=== PATIENT | male | born 1950 | race Caucasian/White ===

== ENCOUNTER 2016-10-05 09:28 | Emergency (ER) | payer BC ==
[2016-10-05 09:45] VITALS: BP 187/99
--- NOTE | 2016-10-05 10:00 | UC ---
I, Lopez,Tanna, scribed for Sharath Marshall MD on 10/05/16 at 0955 . Respiratory Complaint HPI - HPI Summary HPI Summary: This 66 y/o male presents to [facility] with chief complaint of productive cough since a week ago. No fever or chills. Pt has been controlling his symptoms with inhaler q2h and Mucinex. Mucinex alleviates congestion, but still reports head "fullness" that makes sleeping difficult. Pt was evaluated by Dr. Mason yesterday. PMHx does include asthma. FHx is negative for HTN. NKDA. Pt was instructed to use his inhaler NEEDED. Plan of care involving prednisone is discussed with pt, and he is agreeable. - History of Current Complaint Stated Complaint: HEAD/CHEST CONGESTION Hx Obtained From: Patient, Medical Records Onset/Duration: Gradual Onset Timing: Constant Severity Initially: Mild Severity Currently: Mild Character: Cough: Productive Associated Signs And Symptoms: Positive: URI, Nasal Congestion. Negative: Fever , Chills - Allergies/Home Medications Allergies/Adverse Reactions: Allergies Allergy/AdvReac Type Severity Reaction Status Date / Time No Known Allergies Allergy Verified 10/05/16 09:37 Home Medications: Home Medications Upbtckxkrudrw-Hzuhikkzzxfsn-Su [Mucinex Fast-Max Cold & S] 1 tab PO 10/05/16 [ History] PMH/Surg Hx/FS Hx/Imm Hx Respiratory History Of: Reports: Asthma - Surgical History Surgical History: None - Family History Known Family History: Negative: Hypertension - Social History Alcohol Use: Occasionally Substance Use Type: None Smoking Status (MU): Never Smoked Tobacco - Immunization History Most Recent Influenza Vaccination: none Most Recent Tetanus Shot: DPT January 2016 Review of Systems Constitutional: Negative Skin: Negative Eyes: Negative ENT: Nasal Discharge Respiratory: Cough - productive Gastrointestinal: Negative Genitourinary: Negative Motor: Negative Neurovascular: Negative Musculoskeletal: Negative Neurological: Headache - head "fullness" Psychological: Negative All Other Systems Reviewed And Are Negative: Yes Physical Exam Triage Information Reviewed: Yes Appearance: Well-Appearing, No Pain Distress, Well-Nourished Vital Signs: Initial Vital Signs Temp 97.4 F 10/05/16 09:41 Pulse 68 10/05/16 09:41 Resp 16 10/05/16 09:41 BP 187/99 10/05/16 09:41 Pulse Ox 95 10/05/16 09:41 Vital Signs Reviewed: Yes Eyes: Positive: Conjunctiva Clear ENT: Positive: Normal ENT inspection, Hearing grossly normal, Pharynx normal, TMs normal. Negative: Nasal congestion, Nasal drainage Neck: Positive: Supple, Nontender, No Lymphadenopathy Respiratory: Positive: Chest non-tender, No respiratory distress, No accessory muscle use, Decreased breath sounds Cardiovascular: Positive: RRR, No Murmur, Pulses Normal Skin Exam: Normal UC Diagnostic Evaluation - Laboratory O2 Sat by Pulse Oximetry: 95 Respiratory Course/Dx - Differential Dx/Diagnosis Provider Diagnoses: BRONCHITIS Discharge - Discharge Plan Condition: Stable Disposition: HOME Prescriptions: Azithromycin TAB* [Zithromax TAB (Z-MARGI) 250 mg #6 tabs] 2 tab PO .TODAY, THEN 1 DAILY #1 margi predniSONE TAB* [Deltasone TAB*] 40 mg PO DAILY #10 tab Patient Education Materials: Acute Bronchitis (ED) Referrals: Chastity Arriola MD [Primary Care Provider] - 7 Days The documentation as recorded by the Lopez rubio Soohyun accurately reflects the service I personally performed and the decisions made by Joanna porras Hossein, MD.
== END 2016-10-05 10:07 | disposition home or self-care (01) ==
LOC: UCEAST 09:28
DX: J40 Bronchitis, not specified as acute or chronic (principal); Z87.09 Personal history of other diseases of the respiratory system
CPT/HCPCS: 99212; G0463

== ENCOUNTER 2017-03-24 09:27 | Emergency (ER) | payer BC ==
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
[2017-03-24 11:12] VITALS: BP 170/90
== END 2017-03-24 11:14 | disposition home or self-care (01) ==
LOC: UCEAST 09:27
DX: J30.9 Allergic rhinitis, unspecified (principal); R05 Cough; H61.23 Impacted cerumen, bilateral
CPT/HCPCS: 99213; G0463

== ENCOUNTER 2017-04-03 10:27 | Emergency (ER) | payer BC ==
[2017-04-03] MEDS ORDERED: Albuterol 2.5 MG/3 ML NEB.SOL* (0.083%) INH ONE (12:31)
[2017-04-03] MEDS ORDERED: Ipratropium 0.5MG/2.5ML NEB* 0.5 MG/2.5 ML NEB.SOLN INH ONE (12:31)
[2017-04-03] MEDS ORDERED: predniSONE TAB* 20 MG PO ONE (12:31)
--- NOTE | 2017-04-03 12:34 | UC ---
Respiratory Complaint HPI - HPI Summary HPI Summary: 66 yo male with progressively worsening cough/wheezing x 3 days cough now productive of green phlegm YAMINI x weeks - History of Current Complaint Chief Complaint: UCRespiratory Stated Complaint: CONGESTION Time Seen by Provider: 04/03/17 12:22 Hx Obtained From: Patient Onset/Duration: Gradual Onset, Lasting Days Timing: Constant Severity Initially: Moderate Severity Currently: Moderate Pain Intensity: 2 Pain Scale Used: 0-10 Numeric Character: Cough: Productive Aggravating Factors: Allergens, Exertion Alleviating Factors: Bronchodilator Associated Signs And Symptoms: Positive: Wheezing Related History: Similar Episode/Dx as: - bronchitis - Allergies/Home Medications Allergies/Adverse Reactions: Allergies Allergy/AdvReac Type Severity Reaction Status Date / Time No Known Allergies Allergy Verified 10/05/16 09:37 PMH/Surg Hx/FS Hx/Imm Hx Previously Healthy: Yes Respiratory History: Asthma, Bronchitis - Surgical History Surgical History: None - Family History Known Family History: Negative: Hypertension, Diabetes - Social History Alcohol Use: Occasionally Substance Use Type: None Smoking Status (MU): Never Smoked Tobacco - Immunization History Most Recent Influenza Vaccination: none Most Recent Tetanus Shot: DPT January 2016 Review of Systems Constitutional: Negative Skin: Negative Eyes: Negative ENT: Negative Respiratory: Cough Cardiovascular: Negative Gastrointestinal: Negative Genitourinary: Negative Motor: Negative Neurovascular: Negative Musculoskeletal: Negative Neurological: Negative Psychological: Negative All Other Systems Reviewed And Are Negative: Yes Physical Exam Triage Information Reviewed: Yes Appearance: Well-Appearing, No Pain Distress, Well-Nourished Vital Signs: Initial Vital Signs Temp 98.7 F 04/03/17 11:12 Pulse 77 04/03/17 11:12 Resp 20 04/03/17 11:12 BP 170/90 04/03/17 11:12 Pulse Ox 96 04/03/17 11:12 Vital Signs Reviewed: Yes Eyes: Positive: Conjunctiva Clear ENT: Positive: Hearing grossly normal. Negative: Nasal congestion, Nasal drainage, Trismus, Muffled/hoarse voice Neck: Positive: Supple, Nontender, No Lymphadenopathy Respiratory: Positive: Accessory muscle use, Wheezing Cardiovascular: Positive: RRR, No Murmur Musculoskeletal: Positive: ROM Intact, No Edema Neurological: Positive: Alert Psychological Exam: Normal Skin Exam: Normal UC Diagnostic Evaluation - Laboratory O2 Sat by Pulse Oximetry: 96 - normal not hypoxic Re-Evaluation - Re-Evaluation First Eval Re-Evaluation Time: 13:25 Change: Improved - lungs clear Respiratory Course/Dx - Course Course Of Treatment: states his BP always is high here. will follow up with PMD - Differential Dx/Diagnosis Provider Diagnoses: acute bronchitis with bronchospasm. eleveated BP Discharge - Discharge Plan Condition: Stable Disposition: HOME Prescriptions: Amoxicillin PO (*) [Amoxicillin 875 MG (*)] 875 mg PO BID #14 tab Prednisone [Deltasone] 40 mg PO DAILY #8 tab Patient Education Materials: Acute Bronchitis (ED) Referrals: Chastity Arriola MD [Primary Care Provider] - 2 Weeks Additional Instructions: BP needs rechecking use inhaler as directed recheck for worsening symptoms
[2017-04-03 13:20] VITALS: BP 209/94
== END 2017-04-03 13:45 | disposition home or self-care (01) ==
LOC: UCEAST 10:27
DX: J20.9 Acute bronchitis, unspecified (principal); R03.0 Elevated blood-pressure reading, without diagnosis of hypertension
CPT/HCPCS: 99213; G0463; J7512; J7644

== ENCOUNTER 2017-04-29 08:28 | Emergency (ER) | payer BC ==
[2017-04-29 10:02] VITALS: BP 160/80
--- NOTE | 2017-04-29 10:47 | RAD ---
HISTORY: Cough COMPARISONS: None VIEWS: 4: Frontal dual-energy and lateral views of the chest. FINDINGS: CARDIOMEDIASTINAL SILHOUETTE: The cardiomediastinal silhouette is normal. CECE: The cece are normal. PLEURA: The costophrenic angles are sharp. No pleural abnormalities are noted. LUNG PARENCHYMA: There is hyperinflation with flattening of the diaphragm and expansion of the AP diameter of the chest. ABDOMEN: The upper abdomen is clear. There is no subphrenic gas. BONES AND SOFT TISSUES: No bone or soft tissue abnormalities are noted. OTHER: None. IMPRESSION: HYPERINFLATION, CONSISTENT WITH COPD. NO ACTIVE CARDIOPULMONARY DISEASE.
--- NOTE | 2017-04-29 11:13 | UC ---
Throat Pain/Nasal Gus HPI - HPI Summary HPI Summary: DIAGNOSED WITH BRONCHITIS ON 04/03/17 RESOLVED WITH AMOXICILLIN AND PREDNISONE. FOLLOWED FOR HIGH BLOOD PRESSURE BY DR CHRISTOPHER. HAS ALLERGIES AND CONGESTION. LAST TWO WEEKS HAS HAD WORSENING COUGH, CONGESTION. HAS APPOINTMENT WITH PRIMARY CARE IN LATE APRIL. - History of Current Complaint Chief Complaint: UCRespiratory Stated Complaint: CONGESTION Time Seen by Provider: 04/29/17 10:06 Hx Obtained From: Patient Onset/Duration: Gradual Onset, Lasting Weeks, Still Present Severity: Mild Cough: Productive Associated Signs & Symptoms: Positive: Sinus Discomfort, Nasal Discharge. Negative: Wheezing, Hoarseness, Fever, Vomiting - Epiglottits Risk Factors Epiglottis Risk Factors: Negative - Allergies/Home Medications Allergies/Adverse Reactions: Allergies Allergy/AdvReac Type Severity Reaction Status Date / Time Risperidone [From Risperdal] Allergy GI Upset Verified 04/29/17 08:43 Home Medications: Home Medications Dextromethorphan-Guaifenesin [Robitussin Cough & Chest 20-400 mg/20Ml] 20 ml PO 04/29/17 [History] Fexofenadine (NF) [Milly (NF)] 1 tab PO 04/29/17 [History] PMH/Surg Hx/FS Hx/Imm Hx Previously Healthy: Yes - Surgical History Surgical History: None - Family History Known Family History: Negative: Hypertension, Diabetes - Social History Occupation: Employed Full-time Lives: With Family Alcohol Use: Occasionally Substance Use Type: None Smoking Status (MU): Never Smoked Tobacco - Immunization History Most Recent Influenza Vaccination: none Most Recent Tetanus Shot: DPT January 2016 Review of Systems Constitutional: Negative Skin: Negative Eyes: Negative ENT: Nasal Discharge, Sinus Congestion Respiratory: Cough Cardiovascular: Negative Gastrointestinal: Negative Genitourinary: Negative Motor: Negative Neurovascular: Negative Musculoskeletal: Negative Neurological: Negative Psychological: Negative All Other Systems Reviewed And Are Negative: Yes Physical Exam Triage Information Reviewed: Yes Appearance: Well-Appearing, No Pain Distress, Well-Nourished Vital Signs: Initial Vital Signs Temp 98.1 F 04/29/17 08:45 Pulse 57 04/29/17 08:45 Resp 18 04/29/17 08:45 BP 194/109 04/29/17 08:45 Pulse Ox 96 04/29/17 08:45 Vital Signs Reviewed: Yes Eye Exam: Normal ENT: Positive: Pharynx normal, Nasal congestion, TM bulging, TM dull Dental Exam: Normal Neck exam: Normal Neck: Positive: Supple, Nontender, No Lymphadenopathy Respiratory Exam: Normal Respiratory: Positive: Chest non-tender, Lungs clear, Normal breath sounds, No respiratory distress Cardiovascular Exam: Normal Cardiovascular: Positive: RRR, No Murmur, Pulses Normal Abdominal Exam: Normal Abdomen Description: Positive: Nontender Musculoskeletal Exam: Normal Musculoskeletal: Positive: Strength Intact, ROM Intact Neurological Exam: Normal Psychological Exam: Normal Skin Exam: Normal Throat Pain/Nasal Course/Dx - Differential Dx/Diagnosis Differential Diagnosis/HQI/PQRI: Pharyngitis, Sinusitis, URI Provider Diagnoses: SINUSITIS, HYPERTENSION, COPD Discharge - Discharge Plan Condition: Stable Disposition: HOME Prescriptions: Albuterol HFA INHALER* [Ventolin HFA Inhaler*] 1 - 2 puff INH Q6H PRN #1 mdi PRN Reason: Wheezing Azithromycin TAB* [Zithromax TAB (Z-MARGI) 250 mg #6 tabs] 250 mg PO DAILY #6 tab Patient Education Materials: Sinusitis (ED), Acute Bronchitis (ED), COPD ( Chronic Obstructive Pulmonary Disease) (ED), Hypertension (ED) Referrals: Chastity Arriola MD [Primary Care Provider] - Additional Instructions: ELEVATED BLOOD PRESSURE: TODAY DURING CLINICAL EVALUATION YOUR BLOOD PRESSURE WAS NOTED TO BE ELEVATED. TODAY IT WAS __194___/__109____; NORMAL BLOOD PRESSURE IS 120/80. PLEASE SET AN APPOINTMENT WITHIN THE NEXT WEEK WITH YOUR PRIMARY CARE PROVIDER (OR PROMPTLY ESTABLISH PRIMARY CARE) REGARDING PROMPT RE- EVALUATION OF THIS CONCERN. HIGH BLOOD PRESSURE IS THE MOST COMMON AND HIGHLY IMPORTANT RISK FACTOR FOR THE FOLLOWING: HEART FAILURE, HEART ATTACK ( MYOCARDIAL INFARCTION), INTRACEREBRAL HEMORRHAGE, ISCHEMIC & NONISCHEMIC STROKES , WELL CHRONIC KIDNEY DISEASE AND END STAGE RENAL DISEASE. PLEASE CONSULT AND DISCUSS MANAGEMENT OF THIS FINDING WITH YOUR PRIMARY CARE PHYSICIAN.
== END 2017-04-29 11:10 | disposition home or self-care (01) ==
LOC: UCEAST 08:28
DX: J32.9 Chronic sinusitis, unspecified (principal); I10 Essential (primary) hypertension; J44.9 Chronic obstructive pulmonary disease, unspecified; Z88.8 Allergy status to other drugs, medicaments and biological substances
CPT/HCPCS: 71020; 99212; G0463

== ENCOUNTER 2017-05-05 07:30 | Emergency (ER) | payer BC ==
[2017-05-05 07:49] VITALS: BP 170/97
--- NOTE | 2017-05-05 07:50 | UC ---
Respiratory Complaint HPI - HPI Summary HPI Summary: 66 YEAR OLD MALE PRESENTS WITH COMPLAINS OF COUGH, POST NASAL DRIP AND WHEEZING. - History of Current Complaint Chief Complaint: UCRespiratory Stated Complaint: COUGH Time Seen by Provider: 05/05/17 07:48 Hx Obtained From: Patient Onset/Duration: Lasting Days Severity Initially: Moderate Severity Currently: Moderate Pain Scale Used: 0-10 Numeric - 4 Aggravating Factors: Allergens, Exertion, Deep Breaths, Recumbent Position Alleviating Factors: Upright Position Associated Signs And Symptoms: Positive: Wheezing - Allergies/Home Medications Allergies/Adverse Reactions: Allergies Allergy/AdvReac Type Severity Reaction Status Date / Time Levocetirizine [From Xyzal] Allergy GI Upset Verified 05/05/17 07:50 PMH/Surg Hx/FS Hx/Imm Hx Previously Healthy: Yes - Surgical History Surgical History: None - Family History Known Family History: Negative: Hypertension, Diabetes - Social History Alcohol Use: Occasionally Substance Use Type: None Smoking Status (MU): Never Smoked Tobacco - Immunization History Most Recent Influenza Vaccination: none Most Recent Tetanus Shot: DPT January 2016 Review of Systems Constitutional: Negative Skin: Negative Eyes: Negative ENT: Negative Respiratory: Cough Cardiovascular: Negative Gastrointestinal: Negative Genitourinary: Negative Motor: Negative Neurovascular: Negative Musculoskeletal: Negative Neurological: Negative Psychological: Negative All Other Systems Reviewed And Are Negative: Yes Physical Exam Triage Information Reviewed: Yes Eye Exam: Normal ENT Exam: Normal Dental Exam: Normal Neck exam: Normal Neck: Positive: 1 Respiratory: Positive: Wheezing Cardiovascular Exam: Normal Abdominal Exam: Normal Musculoskeletal Exam: Normal Neurological Exam: Normal Psychological Exam: Normal Skin Exam: Normal Respiratory Course/Dx - Differential Dx/Diagnosis Provider Diagnoses: COUGH. WHEEZING. POST NASAL DRIP Discharge - Discharge Plan Condition: Stable Disposition: HOME Prescriptions: Fexofenadine (NF) [Milly 180 (NF)] 180 mg PO Q24HR #30 tab predniSONE TAB* [Deltasone TAB*] 40 mg PO DAILY #10 tab Patient Education Materials: Acute Bronchitis (ED), Allergic Rhinitis (ED), Cold Symptoms (ED), Acute Cough (ED) Referrals: Chastity Arriola MD [Primary Care Provider] -
== END 2017-05-05 08:06 | disposition home or self-care (01) ==
LOC: UCEAST 07:30
DX: R05 Cough (principal); R06.2 Wheezing; R09.82 Postnasal drip
CPT/HCPCS: 99212; G0463

== ENCOUNTER 2017-05-20 07:28 | Emergency (ER) | payer BC ==
[2017-05-20] MEDS ORDERED: Aspirin Low Dose CHEW TAB* 81 MG PO ONE (08:39)
--- NOTE | 2017-05-20 08:51 | UC ---
Respiratory Complaint HPI - HPI Summary HPI Summary: Patient presents with a past medical history of seasonal allergies, asthma, and COD. He states he has had difficulty breathing for several weeks. He states he has been treated on two occasions with Zithromax, prednisone, darlene, mucinex, and has been using his albuterol nebulizer with no significant improvement. He states last night he started to have chest pain, he motions to the middle of his chest. He states the pressure in non-radiating. He states it is constant. He states it gets worse with exertion. He states he "something is wrong". He denies recorded or tactile fever. He states overall fatigue and malaise. He reports hard time breathing, and audible wheezing all the time now. - History of Current Complaint Chief Complaint: UCRespiratory Stated Complaint: CONGESTION Time Seen by Provider: 05/20/17 08:18 Hx Obtained From: Patient Onset/Duration: Gradual Onset, Lasting Weeks Timing: Constant Severity Initially: Moderate Severity Currently: Moderate Aggravating Factors: Allergens, Exertion, Deep Breaths, Recumbent Position Alleviating Factors: Nothing Associated Signs And Symptoms: Positive: Dyspnea, Wheezing, URI, Nasal Congestion, Sinus Discomfort Related History: Seasonal Allergies - Risk Factors Pulmonary Embolism Risk Factors: Negative Cardiac Risk Factors: Negative Pseudomonas Risk Factors: Negative Tuberculosis Risk Factors: Corticosteriod Use - Allergies/Home Medications Allergies/Adverse Reactions: Allergies Allergy/AdvReac Type Severity Reaction Status Date / Time Levocetirizine [From Xyzal] Allergy GI Upset Verified 05/20/17 08:01 PMH/Surg Hx/FS Hx/Imm Hx Previously Healthy: No Respiratory History: COPD, Asthma - Surgical History Surgical History: None - Family History Known Family History: Negative: Hypertension, Diabetes - Social History Occupation: Employed Full-time Lives: Alone Alcohol Use: Occasionally Substance Use Type: None Smoking Status (MU): Never Smoked Tobacco - Immunization History Most Recent Influenza Vaccination: none Most Recent Tetanus Shot: DPT January 2016 Review of Systems Constitutional: Fatigue Respiratory: Shortness Of Breath, Cough, Other - wheezing Cardiovascular: Chest Pain Gastrointestinal: Negative Genitourinary: Negative Motor: Negative Neurovascular: Negative Musculoskeletal: Negative Neurological: Negative All Other Systems Reviewed And Are Negative: Yes Physical Exam Triage Information Reviewed: Yes Appearance: Ill-Appearing Vital Signs: Initial Vital Signs Temp 97.6 F 09/05/17 07:57 Pulse 74 05/20/17 07:57 Resp 18 05/20/17 07:57 BP 185/103 05/20/17 07:57 Pulse Ox 100 05/20/17 07:57 Vital Signs Reviewed: Yes Eye Exam: Normal ENT Exam: Normal Neck exam: Normal Respiratory: Positive: Respiratory distress, Decreased breath sounds, Accessory muscle use, Wheezing, Expiration, Inspiration Cardiovascular Exam: Normal Abdominal Exam: Normal Musculoskeletal Exam: Normal Neurological Exam: Normal Skin Exam: Normal UC Diagnostic Evaluation - Laboratory O2 Sat by Pulse Oximetry: 100 Respiratory Course/Dx - Course Course Of Treatment: Patient presents with PMH of asthma, COPD, seasonal allergies. He has been seen and treated three times with no improvment. He now has chest pain , and EKG was obtained and read as SR, and he was ambulated in the department and became tachynepic, and tachcardic with decreased O2 saturation to 93%. He received aspirin, and an albuterol treatment. IV access was obtained. Given his ongoing symtpomatology he warrents a higher level of care where he can receive a full work up of his symtpoms quickly and treated as indicated. - Differential Dx/Diagnosis Differential Diagnosis/HQI/PQRI: Exacerbation Of COPD Provider Diagnoses: COPD exacerbation. Asthma. Tachynepic. Tachcardic. Respirtory distress Discharge - Discharge Plan Condition: Stable Disposition: TRANS HIGHER LVL OF CARE FAC Referrals: Chastity Arriola MD [Primary Care Provider] -
[2017-05-20] MEDS ORDERED: Albuterol 2.5 MG/3 ML NEB.SOL* (0.083%) INH ONE (09:08)
[2017-05-20 09:18] VITALS: BP 228/98
== END 2017-05-20 09:24 | disposition short-term general hospital (02) ==
LOC: UCEAST 07:28
DX: J44.1 Chronic obstructive pulmonary disease with (acute) exacerbation (principal); R06.00 Dyspnea, unspecified; R00.0 Tachycardia, unspecified; R53.83 Other fatigue
CPT/HCPCS: 93005; 99214; A9270-GY; G0463

== ENCOUNTER 2017-05-20 09:43 | Emergency (ER) | payer BC ==
[2017-05-20] MEDS ORDERED: methylPREDNISolone 125 MG* 2 ML VIAL IV ONE (10:40)
[2017-05-20] MEDS ORDERED: Albuterol/Ipratropium NEB.SOL* Albuterol 2.5 MG/Ipratropium 0.5 MG 3 ML INH ONE ×2 (10:40→14:15)
[2017-05-20] MEDS ORDERED: NS 0.9% 1000 ML* 1,000 ML IV SCH (10:45)
[2017-05-20 10:57] LABS: Hematocrit 46 % (42-52); Hemoglobin 15.9 g/dl (14.0-18.0); Mean Corpuscular HGB Conc 35 g/dl (31-36); Mean Corpuscular Hemoglobin 33 pg (27-31); Mean Corpuscular Volume 96 fL (80-94); Mean Platelet Volume 8 um3 (7.4-10.4); Red Blood Count 4.78 10^6/ul (4.0-5.4); Red Cell Distribution Width 14 % (10.5-15); White Blood Count 5.1 10^3/ul (3.5-10.8)
[2017-05-20 11:13] LABS: ALT 17 U/L (7-52); AST 19 U/L (13-39); Albumin 3.9 g/dL (3.2-5.2); Alkaline Phosphatase 55 U/L (34-104); Anion Gap 7 mmol/L (2-11); BUN/Creatinine Ratio 20.8 (8-20); Blood Urea Nitrogen 16 mg/dL (6-24); C Reactive Protein < 1.00 mg/L (< 5.00); CO2 Carbon Dioxide 25 mmol/L (22-32); Calcium 8.9 mg/dL (8.6-10.3); Chloride 105 mmol/L (101-111); Creatine Kinase 99 U/L (10-223); EGFR African American 130.8 (>60); EGFR Non-African American 101.7 (>60); Globulin 2.6 g/dL (2-4); Glucose 102 mg/dL (70-100); Lipase 32 U/L (11.0-82.0); Magnesium 2.1 mg/dL (1.9-2.7); Potassium 3.8 mmol/L (3.5-5.0); Sodium 137 mmol/L (133-145); Total Protein 6.5 g/dL (6.4-8.9)
[2017-05-20 11:15] LABS: Troponin I 0.01 ng/mL (<0.04)
--- NOTE | 2017-05-20 11:36 | RAD ---
INDICATION: Shortness of breath. COMPARISON: Comparison is made with a prior chest x-ray study from January 04, 2011 and an exam from April 29, 2017. TECHNIQUE: Dual-energy PA and lateral views of the chest were obtained. FINDINGS: The heart is within normal limits in size. There is a small hiatal hernia present. The lungs are hyperinflated and clear. No pleural effusion is seen. IMPRESSION: 1. FINDINGS CONSISTENT WITH COPD, NO EVIDENCE FOR ACUTE FINDING. 2. SMALL HIATAL HERNIA.
[2017-05-20 11:49] LABS: TSH (Thyroid Stimulating Horm) 1.16 mcIU/mL (0.34-5.60)
[2017-05-20 12:17] LABS: Urine Bilirubin Negative (Negative); Urine Glucose Negative (Negative); Urine Nitrite Negative (Negative)
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
[2017-05-20 15:50] VITALS: BP 148/79
== END 2017-05-20 15:49 | disposition home or self-care (01) ==
LOC: ED 09:43
DX: J44.9 Chronic obstructive pulmonary disease, unspecified (principal); J20.9 Acute bronchitis, unspecified; R05 Cough; R06.2 Wheezing; R07.9 Chest pain, unspecified
CPT/HCPCS: 36415; 71020; 80053; 81003; 82550; 82553; 83605; 83690; 83735; 83880; 84443; 84484; 85025; 85379; 85610; 85730; 86140; 93005; 94640; 99284; A9270-GY; J2930

== ENCOUNTER 2017-06-05 07:32 | Emergency (ER) | payer BC ==
[2017-06-05] MEDS ORDERED: Ipratropium 0.5MG/2.5ML NEB* 0.5 MG/2.5 ML NEB.SOLN INH ONE (07:39)
[2017-06-05] MEDS ORDERED: methylPREDNISolone 125 MG* 2 ML VIAL IM ONE (07:39)
[2017-06-05] MEDS ORDERED: Albuterol 2.5 MG/3 ML NEB.SOL* (0.083%) INH ONE (07:39)
[2017-06-05 08:45] VITALS: BP 158/94
--- NOTE | 2017-07-06 09:02 | UC ---
Aracely Gant SooYoung, scribed for Vy Portillo DO on 06/05/17 at 0753 . Respiratory Complaint HPI - HPI Summary HPI Summary: A 66 y/o M presents to [facility] with c/o cough and congestion onset approx 3 days ago. Associated sx: rhinorrhea. Denies CP; fever; chills; ADAMS; abd pain; n/v; diaphoresis; dizziness; pain in UE, neck or jaw; dysuria; rash. Pt states having ongoing post-nasal trip, cough and congestion intermittently over the past month. States he has "sensitive lungs" that has been worsening over past few years. He a had prev pulmonary function test, he says it found a "mild obstruction." He was seen at [facility] and sent to [facility] on 05/20/17 for SOB, CP and finished the corresponding Rx on 05/25/17. He took Mucinex and DayQuil yesterday. Albuterol inhaler this AM. - History of Current Complaint Chief Complaint: UCRespiratory Stated Complaint: COUGH, AND CHEST CONGESTION Time Seen by Provider: 06/05/17 07:38 Hx Obtained From: Patient Onset/Duration: Lasting Days, Still Present Timing: Constant Severity Initially: Moderate Severity Currently: Moderate Pain Intensity: 7 Pain Scale Used: 0-10 Numeric Associated Signs And Symptoms: Negative: Fever, Chills, Dizziness - Allergies/Home Medications Allergies/Adverse Reactions: Allergies Allergy/AdvReac Type Severity Reaction Status Date / Time Levocetirizine [From Xyzal] Allergy GI Upset Verified 06/05/17 07:44 Home Medications: Home Medications guaiFENesin ER TAB [Mucinex*] 1 tab PO BID PRN 06/05/17 [History Confirmed 06/28] PMH/Surg Hx/FS Hx/Imm Hx Previously Healthy: No Respiratory History: COPD, Asthma - Surgical History Surgical History: None - Family History Known Family History: Negative: Hypertension, Diabetes - Social History Occupation: Employed Full-time Lives: With Family Alcohol Use: Occasionally Substance Use Type: None Smoking Status (MU): Never Smoked Tobacco - Immunization History Most Recent Influenza Vaccination: Not utd Most Recent Tetanus Shot: DPT January 2016 Review of Systems Constitutional: Negative Skin: Negative Eyes: Negative ENT: Negative Respiratory: Cough, Other - pos: chest congestion Cardiovascular: Negative Gastrointestinal: Negative Genitourinary: Negative Motor: Negative Neurovascular: Negative Musculoskeletal: Negative Neurological: Negative Psychological: Negative All Other Systems Reviewed And Are Negative: Yes Physical Exam Triage Information Reviewed: Yes Appearance: Well-Appearing, No Pain Distress, Well-Nourished Vital Signs: Initial Vital Signs Temp 98.1 F 06/05/17 07:37 Pulse 74 06/05/17 07:37 Resp 18 06/05/17 07:37 BP 204/116 06/05/17 07:37 Pulse Ox 97 06/05/17 07:37 Vital Signs Reviewed: Yes Eyes: Positive: Conjunctiva Clear. Negative: Discharge ENT: Positive: Hearing grossly normal. Negative: Muffled/hoarse voice Neck exam: Normal Neck: Positive: Supple Respiratory: Positive: No respiratory distress, No accessory muscle use, Wheezing - diffuse, all garcia Cardiovascular: Positive: RRR, No Murmur Musculoskeletal Exam: Normal Neurological: Positive: Alert, Muscle Tone Normal Psychological Exam: Normal Psychological: Positive: Age Appropriate Behavior Skin Exam: Normal, Other - warm, dry, nml color UC Diagnostic Evaluation - EKG Cardiac Rate: NL - 66bpm Cardiac Rhythm: Sinus: Normal - no change from prior Re-Evaluation - Re-Evaluation 1 Re-Evaluation Time: 08:59 Change: Improved Comment: After Solumedrol and nebulizer treatment, wheezing resolved, pt feels improved. Respiratory Course/Dx - Course Course Of Treatment: Medications reviewed this visit. High blood pressure noted - Differential Dx/Diagnosis Differential Diagnosis/HQI/PQRI: Asthma, Bronchitis, Lower Resp Infection, Sinusitis Provider Diagnoses: 1. asthma. 2. Elevated blood pressure without diagnosis of hypertension. Discharge - Discharge Plan Condition: Stable Disposition: HOME Patient Education Materials: Prednisone (By mouth), Asthma (ED) Referrals: Chastity Arriola MD [Primary Care Provider] - Additional Instructions: Your blood pressure was elevated at this visit. That does not mean you have hypertension, it is probably due to your current condition. Please follow up with your primary care provider. Return to Urgent Care if you have any new or worsening symptoms FOLLOW-UP CARE: You should establish with a private physician for follow-up care. We recommend Rhonda Espitia at [facility]. If you are unable to get a timely appointment, or if you are worsening, call us or return for re- evaluation. An additional resource available to assist in finding the appropriate physician for your health care needs is the Physician Referral Center. You may contact them by calling [phone]. The documentation as recorded by the Aracely rubio SooYoung accurately reflects the service I personally performed and the decisions made by me, Vy Portillo DO.
== END 2017-06-05 09:30 | disposition home or self-care (01) ==
LOC: UCEAST 07:32
DX: J44.9 Chronic obstructive pulmonary disease, unspecified (principal); R03.0 Elevated blood-pressure reading, without diagnosis of hypertension; R07.9 Chest pain, unspecified; Z88.8 Allergy status to other drugs, medicaments and biological substances
CPT/HCPCS: 93005; 96372; 99213; G0463; J2930; J7644

== ENCOUNTER 2017-06-28 07:28 | Inpatient (IN) | payer BC ==
[2017-06-28] MEDS ORDERED: NS 0.9% 1000 ML* 1,000 ML IV ONE (08:09)
[2017-06-28] MEDS ORDERED: methylPREDNISolone 125 MG* 2 ML VIAL IV ONE (08:09)
[2017-06-28] MEDS: Albuterol/Ipratropium NEB.SOL* Albuterol 2.5 MG/Ipratropium 0.5 MG 3 ML INH SCH ×5 (08:45→19:58)
--- NOTE | 2017-06-28 08:59 | RAD ---
INDICATION: Shortness of breath and cough. COMPARISON: Comparison is made with a prior chest x-ray study from May 20, 2017. TECHNIQUE: Dual-energy PA and lateral views of the chest were obtained. FINDINGS: The heart is within normal limits in size. Mediastinal and hilar contours appear within normal limits. There is a small hiatal hernia present. The lungs are hyperinflated. There is a small infiltrate at the right lung base. No pleural effusion is seen. IMPRESSION: 1. SMALL RIGHT BASILAR INFILTRATE AND FINDINGS CONSISTENT WITH COPD. 2. SMALL HIATAL HERNIA.
[2017-06-28 09:10] LABS: Hematocrit 41 % (42-52); Hemoglobin 13.9 g/dl (14.0-18.0); Mean Corpuscular HGB Conc 34 g/dl (31-36); Mean Corpuscular Hemoglobin 33 pg (27-31); Mean Corpuscular Volume 97 fL (80-94); Mean Platelet Volume 8 um3 (7.4-10.4); Red Blood Count 4.22 10^6/ul (4.0-5.4); Red Cell Distribution Width 14 % (10.5-15); White Blood Count 4.9 10^3/ul (3.5-10.8)
[2017-06-28 09:38] LABS: Albumin 3.7 g/dL (3.2-5.2); BUN/Creatinine Ratio 17.9 (8-20); C Reactive Protein 1.34 mg/L (< 5.00); Calcium 8.6 mg/dL (8.6-10.3); EGFR African American 117.9 (>60); EGFR Non-African American 91.7 (>60); Globulin 2.4 g/dL (2-4); Potassium 3.6 mmol/L (3.5-5.0); Total Bilirubin 0.4 mg/dL (0.2-1.0); Total Protein 6.1 g/dL (6.4-8.9)
[2017-06-28 09:43] LABS: Troponin I 0.06 ng/mL (<0.04)
[2017-06-28] MEDS ORDERED: guaiFENesin ER TAB 600 MG PO PRN (11:16)
[2017-06-28] MEDS ORDERED: Acetaminophen TAB* 325 MG PO PRN (11:17)
[2017-06-28] MEDS ORDERED: Aspirin EC TAB* 325 MG PO ONE (11:32)
[2017-06-28] MEDS ORDERED: Albuterol 2.5 MG/3 ML NEB.SOL* (0.083%) INH PRN (11:33)
[2017-06-28] MEDS: Enoxaparin(*) 40 MG/0.4 ML SYR SUBCUT SCH (12:55)
[2017-06-28 12:59] LABS: Troponin I 0.06 ng/mL (<0.04)
--- NOTE | 2017-06-28 14:08 | HP ---
CC: Rhonda Espitia NP HISTORY AND PHYSICAL: DATE OF ADMISSION: 06/28/17 PRIMARY CARE PHYSICIAN: Rhonda Espitia NP CHIEF COMPLAINT: Dyspnea on exertion. HISTORY OF PRESENT ILLNESS: Mr. Marie is a 67-year-old male with past medical history of kidney s tones, allergies, and possible asthma, who presents to the hospital with dyspnea on exertion and cou gh. The patient states the symptoms began yesterday. He went to work in the morning from 7 to 11 a .m. He used his nebulizer prior to his work shift. He states he had no problems during the shift; however, afterwards he developed a cough that was productive of yellow phlegm. He took some Mucinex . He also states he had some mild rhinorrhea, which resolved. He had gotten off the bus after work and was walking home and after 2 blocks he felt significant shortness of breath that he needed to r est for a moment. He used his inhaler. He states that his symptoms improved enough to complete his walk home and he went up 4 flights of stairs at home. He states he took a shower and felt slightly better. He slept for a good portion of the afternoon, then again when he woke up, he felt wheezy a nd was coughing now brown sputum. He states that he used his nebulizer with some improvement in his symptoms, he was able to go back to sleep last night. This morning he still felt unwell, still fee ling some shortness of breath. He felt like going to urgent care, but required too much walking, so he took the bus to the hospital instead. Denies any chest pain, but does report some tightness ass ociated with the shortness of breath. Denies any fever, chills, nausea, vomiting, abdominal pain. Does report some intermittent diarrhea. Has had good p.o. intake. No dysuria. No blood in the spu andrés. Currently, he reports feeling well. Denies any shortness of breath or chest tightness. The patient has been treated a number of times over the past few months for presumed asthma, for [employer] D versus reactive airway disease. He has been on a number of courses of steroids, once after being seen in the ED here on 05/20/17 and again seen in urgent care on 06/05/17. He states after 4-5 days of prednisone and albuterol inhaler, his symptoms have resolved. 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 He reports having pulmo nary function testing done in the past, which he reports was normal. He has never seen a pulmonolog ist. PAST MEDICAL HISTORY: Possible asthma, kidney stones, seasonal allergies. PAST SURGICAL HISTORY: None. HOME MEDICATIONS: 1. Milly 180 mg by mouth daily. 2. Albuterol inhaler 2 puffs inhaled 2 puffs inhaled every 4 hours as needed for shortness of breat h or wheezing. 3. Albuterol nebulizer 2.5 mg inhaled once. 4. Guaifenesin 1 tablet by mouth 3 times daily as needed for cough. ALLERGIES TO MEDICATIONS: LEVOCETIRIZINE causes nausea and vomiting. FAMILY HISTORY: Significant for father with a pacemaker. SOCIAL HISTORY: The patient has never smoked cigarettes. Denies any alcohol or drug use. REVIEW OF SYSTEMS: A 12-point review of systems is negative except for that is known in the HPI. PHYSICAL EXAMINATION GENERAL: The patient is a middle age male, lying in bed in no apparent distress. VITAL SIGNS: On admission, temperature 97.9, heart rate of 81, respiratory rate of 20, O2 saturatio n is 96% on room air, blood pressure 165/92. Last blood pressure 120/67. HEENT: Head: Normocephalic, atraumatic. Eyes: Pupils are equal, round and reactive to light and accommodation. Anicteric sclerae. ENT: Moist mucous membranes. No cervical adenopathy. Clear po sterior oropharynx. LUNGS: Clear to auscultation bilaterally. No wheezes, rales, or rhonchi. CARDIOVASCULAR: Regular rate and rhythm. S1 and S2 present. No murmurs, gallops, or rubs. ABDOMEN: Soft, nontender, nondistended. Bowel sounds positive. EXTREMITIES: No cyanosis, clubbing, or edema. NEUROLOGIC: The patient is alert and oriented x3. No focal neurological deficits. SKIN: Warm, dry, and well perfused. DIAGNOSTIC STUDIES/LAB DATA: White blood cell count of 4.9, hematocrit of 41, and platelets of 176 . Sodium 138, potassium 3.6, chloride of 105, carbon dioxide 26, BUN of 15, creatinine of 0.84. LF Ts are within normal limits. CK 146, CK-MB of 4.5, troponin of 0.06, B-natriuretic peptide of 113. Total protein is 6.1. Chest x-ray personally reviewed shows small right basilar infiltrate that may be new from prior ches t x-ray. EKG personally reviewed shows some ST depression and T- wave inversions in inferior latera l leads, may be repolarization abnormalities, but these are new from compared to his previous EKG. ASSESSMENT AND PLAN: Dyspnea on exertion, productive cough in a 67-year-old male with past medical history of seasonal allergies, kidney stones and possible asthma. 1. Dyspnea on exertion. It seems the patient has had improvement in his symptoms with chronic obst ructive pulmonary disease medication; however, I am concerned about his EKG changes and possible und erlying cardiac etiology. The patient's initial troponin is 0.06, is mildly elevated; however, on p revious presentation has had a negative troponin. CK and CK-MB are within normal limits. He does h ave some new EKG changes, which are concerning. For now, monitor the patient on telemetry. Continue to trend his troponins and get a repeat EKG later on today. Continue the patient on aspirin and we will consider cardiology consult if the patient's troponins continue to rise. Currently, he is asy mptomatic. He received Solu- Medrol and DuoNeb in the emergency department. We will continue with around-the- clock DuoNeb for now and p.r.n. albuterol. Do not need any further steroids today. The patient can start oral prednisone tomorrow if this is felt to be a pulmonary etiology. He is not sh owing any clear signs of infection on his vitals or labs; however, he does have a new infiltrate. I will check a procalcitonin. If this is elevated, we will consider a course of antibiotics. 2. Allergies. Holding home Milly as we do not have this on formulary here. 3. DVT prophylaxis: Lovenox subcu. 4. Code status: The patient is full code. TIME SPENT: Total time spent on this admission was 50 minutes, with over half the time spent face-t o-face with the patient counseling and coordinating care. [id number]/[facility] #: [id number]
[2017-06-28] MEDS: Metoprolol Succinate XL TAB* 25 MG PO SCH (18:06)
[2017-06-29] MEDS: Albuterol/Ipratropium NEB.SOL* Albuterol 2.5 MG/Ipratropium 0.5 MG 3 ML INH SCH ×2 (01:40→07:54)
--- NOTE | 2017-06-29 07:41 | PN ---
Subjective Date of Service: 06/29/17 Interval History: Patient seen this morning. No complaints, feels well. Ambulated around the unit yesterday, no SOB or chest tightness. No fever or chills. Occasional cough productive of clear saliva. Family History: Unchanged from Admission Social History: Unchanged from Admission Past Medical History: Unchanged from Admission Objective Active Medications: Acetaminophen (Tylenol Tab*) 650 mg PO Q4H PRN Albuterol (Ventolin 2.5 Mg/3 Ml Neb.Phoebe*) 2.5 mg INH Q2H PRN Albuterol/Ipratropium (Duoneb (Albuterol 2.5 Mg/Ipratropium 0.5 Mg)) 1 neb INH [id number] AWAKE [facility] Aspirin (Aspirin Low Dose Tab*) 81 mg PO DAILY [facility] Enoxaparin Sodium (Lovenox(*)) 40 mg SUBCUT Q24H [facility] Guaifenesin (Mucinex*) 600 mg PO BID PRN Metoprolol Succinate (Toprol Xl Tab*) 25 mg PO DAILY [facility] Pneumococcal Polyvalent Vaccine (Pneumococcal Vac 23-Polyvalent*) 0.5 ml IM .ONCE ONE Prednisone (Deltasone Tab*) 40 mg PO DAILY [facility] Vital Signs 06/28/17 06/28/17 06/28/17 15:29 15:58 19:40 Temperature 98.1 F 98.3 F Pulse Rate 91 77 78 Respiratory 16 16 16 Rate Blood Pressure 151/89 157/88 (mmHg) O2 Sat by Pulse 98 95 94 Oximetry 06/28/17 06/29/17 06/29/17 20:00 00:17 04:46 Temperature 98.4 F 98.3 F Pulse Rate 82 98 75 Respiratory 16 16 20 Rate Blood Pressure 135/85 144/71 (mmHg) O2 Sat by Pulse 95 97 94 Oximetry Oxygen Devices in Use Now: None Appearance: Middle-aged, M, laying in bed in NAD Eyes: No Scleral Icterus Ears/Nose/Mouth/Throat: Mucous Membranes Moist Neck: NL Appearance and Movements; NL JVP Respiratory: Symmetrical Chest Expansion and Respiratory Effort, - - Some mild wheezing diffusely, good air movement Cardiovascular: NL Sounds; No Murmurs; No JVD, RRR Abdominal: NL Sounds; No Tenderness; No Distention Lymphatic: No Cervical Adenopathy Extremities: No Edema Skin: No Rash or Ulcers Neurological: Alert and Oriented x 3 Result Diagrams: 06/28/17 08:55 06/28/17 08:55 Assess/Plan/Problems-Billing Assessment: Dyspnea on exertion in a 67 yo M with hx of seasonal allergies, kidney stones and possible asthma - Patient Problems (1) Dyspnea on exertion Current Visit: Yes Comment: Cardiac vs pulmonary etiology. Troponins remained stable at 0.06, repeat EKG in afternoon was unchanged, still with inferior/ lateral ST depression/TWI, ?repol abnormalities from LVH. Continue ASA and Metoprolol. Will plan for cardiac stress test tomorrow AM. Continue nebs, will give prednsione this AM. (2) DVT prophylaxis Current Visit: Yes Comment: Lovenox SQ Status and Disposition: Inpatient
[2017-06-29] MEDS: Aspirin Low Dose CHEW TAB* 81 MG PO SCH (07:54)
[2017-06-29] MEDS: Metoprolol Succinate XL TAB* 25 MG PO SCH (07:54)
[2017-06-29] MEDS ORDERED: predniSONE TAB* 20 MG PO SCH (09:00)
[2017-06-29] MEDS ORDERED: Pneumococcal *Vac Polyvalent 0.5 ML VIAL IM ONE (09:00)
--- NOTE | 2017-06-29 12:07 | ECHO ---
Patient: TAISHA FIGUEROA [facility] Rec#: [id number] : 1950 Date: 06/29/2017 Age: 67y Height: 172.72 cm / 68.0 in Weight: 68.04 kg / 150.0 lbs Sex: M BSA: 1.81 Room#: 431 Admit Date#: 06/28/2017 Type: Inpatient Referring: SHRUTHI ROSSI MD Reading: Luis Miguel Ngo MD Metal Mover: Tsering FitzgeraldRDCS,RDMS Transthoracic Echocardiogram Indication: Dyspnea BP: 144/71 HR: 72 Rhythm: NSR Findings History: Asthma Technical Comments: The study quality is fair. Left Ventricle: The left ventricular chamber size is normal. Mild concentric left ventricular hypertrophy is observed. The estimated ejection fraction is 55-60%. There is no consistent Doppler evidence of clinically significant diastolic dysfunction. Left Atrium: The left atrial chamber size is normal. Right Ventricle: The right ventricular chamber size and systolic function are within normal limits. Right Atrium: The right atrial cavity size is normal. Aortic Valve: The aortic valve is trileaflet. The aortic valve leaflets are mildly thickened. Systolic excursion of the aortic valve is normal. There is a trace of aortic regurgitation. There is no evidence of aortic stenosis. Mitral Valve: There is mitral annular calcification. There is a trace of mitral regurgitation. There is no evidence of mitral stenosis. Tricuspid Valve: The tricuspid valve leaflets are normal. There is trace tricuspid regurgitation. Unable to estimate the right ventricular systolic pressure. Pulmonic Valve: The pulmonic valve structure is not well visualized. Pericardium: There is no significant pericardial effusion. Aorta: The aortic root appears normal. There is no dilatation of the aortic arch. Pulmonary Artery: The main pulmonary artery is not well visualized. Venous: The inferior vena cava appears normal in size. There is a greater than 50% respiratory change in the inferior vena cava dimension. Summary: There was not any prior study for comparison. Conclusions The left ventricular chamber size is normal. Mild concentric left ventricular hypertrophy is observed. The estimated ejection fraction is 55-60%. There is a trace of mitral regurgitation. There is trace tricuspid regurgitation. Measurements Name Value Normal Range RVIDd (AP) 2D 2.3 cm (0.9 - 2.6) RVDdMajor (2D) 3.3 cm (2.2 - 4.4) RAd ISD 4CH 4.1 cm (3.4 - 4.9) RA (A4C)W 4 cm (2.9 - 4.6) IVSd (2D) 1.3 cm (0.6 - 1) LVPWd (2D) 1.1 cm (0.6 - 1) LVIDd (2D) 3.6 cm (3.6 - 5.4) LVIDs (2D) 3 cm - LV FS (2D) 16 % (25 - 45) Aortic Annulus 2 cm (1.4 - 2.6) Ao root diameter (2D) 2.6 cm (2.1 - 3.5) Ascending Ao 2.4 cm (2.1 - 3.4) Aortic arch 2.3 cm (1.8 - 3.4) LA dimension (AP) 2D 3.6 cm (2.3 - 3.8) LAd ISD 4CH 4.6 cm (2.9 - 5.3) LA ISD 4CH W 4.2 cm (2.5 - 4.5) Name Value Normal Range LA ESV SP 4CH (A/L) 56.88 ml - LA ESV SP 2CH (A/L) 47.69 ml - LA ESV BP (A/L) 52.11 ml - LA ESV BP (A/L) index 29 ml/m2 - LA ESV SP 4CH (MOD) 53.52 ml - LA ESV SP 2CH (MOD) 45.82 ml - Name Value Normal Range MV E-wave Vmax 0.7 m/sec - MV deceleration time 247 msec - MV A-wave Vmax 0.8 m/sec - MV E:A ratio 0.9 ratio - LV septal e' Vmax 0.07 m/sec - LV lateral e' Vmax 0.1 m/sec - LV E:e' septal ratio 10 ratio - LV E:e' lateral ratio 7 ratio - Name Value Normal Range AV Vmax 1.3 m/sec - AV VTI 26 cm - AV peak gradient 7 mmHg - AV mean gradient 3 mmHg - LVOT diameter 2 cm - LVOT Vmax 1 m/sec - LVOT VTI 21.7 cm - LVOT peak gradient 4 mmHg - LVOT mean gradient 2 mmHg - KARLENE (continuity Vmax) 2.7 cm2 - KARLENE (continuity VTI) 2.7 cm2 - FREYA Vmax 0.6 m/sec - Name Value Normal Range RAP 8 mmHg - IVC diameter 1.5 cm - Name Value Normal Range PV Vmax 0.9 m/sec - PV peak gradient 3.2 mmHg -
[2017-06-29] MEDS: Enoxaparin(*) 40 MG/0.4 ML SYR SUBCUT SCH (12:43)
[2017-06-30] MEDS: Aspirin Low Dose CHEW TAB* 81 MG PO SCH (07:00)
[2017-06-30] MEDS: Metoprolol Succinate XL TAB* 25 MG PO SCH (07:00)
--- NOTE | 2017-06-30 11:45 | RAD ---
Edited for charges. INDICATION: Chest tightness. EKG changes. Hypertension. COMPARISON: June 28, 2017 chest radiograph. TECHNIQUE: 10.510 mCi of Tc-99m Myoview were administered IV. SPECT images of the heart were obtained. Later on the same day. Under the direction of Dr. Thurman, an exercise stress test was performed. The patient achieved a peak heart rate of 130 bpm, 84 % of the age- predicted maximum. Subsequently, the patient was given an IV injection of 24.520 mCi Tc- 99m Myoview. SPECT images of the heart were obtained and a gated wall motion study was performed. FINDINGS: Gated wall motion images were obtained at stress and demonstrate diffuse hypokinesia. The calculated left ventricular ejection fraction is 43 % at stress. Estimated LEFT ventricular end diastolic volume is 114 mL. TID 1.02. Diaphragmatic attenuation and inferior gut activity noted. Small focal perfusion defect at the mid to basilar inferior wall at stress with partial reversal at rest. Diaphragmatic attenuation and inferior gut activity artifact limits specificity. IMPRESSION: 1. Potential small focus of stress-induced ischemia at the mid to basilar inferior wall with diaphragmatic attenuation and inferior gut activity artifact limiting specificity. 2. Borderline dilated LEFT ventricle based on estimated end-diastolic volume and global hypokinesia. Below normal LEFT ventricular ejection fraction estimated at 43% at stress. ASSESSMENT: INTERMEDIATE RISK. Based on imaging criteria from ACC/AHA 2002 Guideline Update for the Management of Patients With Chronic Stable Angina Table 23. Noninvasive Risk Stratification. MTDD
[2017-06-30 12:09] VITALS: BP 162/82
[2017-06-30] MEDS: Enoxaparin(*) 40 MG/0.4 ML SYR SUBCUT SCH (12:42)
--- NOTE | 2017-06-30 13:34 | DCNOTE ---
Patient seen before and after stress test. Says he feels well, has been ambulating frequently. Still with some mild wheezing. No chest pain. On exam, mild end-expiratory wheezing, RRR, s1 and s2 present, no m/g/r, abd soft, NTND, BS+ Spoke with Dr. Yang who felt that nuclear stress test was low risk. Will discharge on prednisone and albuterol. Will also continue ASA 81 mg daily. Recommend outpatient PCP and Allergy/Pulm follow-up. Can f/u with Cardiology as well to determine if any additional outpatient testing is warranted.
[2017-06-30] MEDS ORDERED: predniSONE TAB* 20 MG PO ONE (13:41)
--- NOTE | 2017-07-01 05:41 | DS ---
CC: Rhonda Espitia NP * DISCHARGE SUMMARY: DATE OF ADMISSION: 06/28/17 DATE OF DISCHARGE: 06/30/17 PRIMARY CARE PHYSICIAN: Rhonda Espitia NP PRINCIPAL DISCHARGE DIAGNOSES: 1. Upper respiratory infection. 2. Reactive airway disease versus asthma exacerbation. 3. Dyspnea on exertion. SECONDARY DIAGNOSES: 1. Seasonal allergies. 2. Kidney stones. DISCHARGE MEDICATION REGIMEN: 1. Albuterol nebulizer 2.5 mg every 4 hours as needed for shortness of breath or wheezing. 2. Albuterol inhaler 2 puffs inhaled every 4 hours as needed for shortness of breath or wheezing. 3. Aspirin 81 mg by mouth daily. 4. Prednisone 40 mg by mouth daily x2 additional days. 5. Mucinex 1 tab by mouth 3 times daily as needed for cough. 6. Milly 180 mg by mouth daily. STUDIES DONE DURING HOSPITALIZATION: 1. Chest x-ray, impression: Small right basilar infiltrate and findings consistent with COPD, small hiatal hernia. 2. Transthoracic echocardiogram, conclusions: Left ventricular chamber size is normal, mild concentric LVH is preserved, estimated ejection fraction is 55% to 60%, trace mitral regurgitation, trace tricuspid regurgitation. 3. Nuclear cardiac stress test, impression: Potential small focus of stress induced ischemia at the mid to basilar inferior wall with diaphragmatic attenuation and likely artifact limiting specificity, borderline dilated left ventricle based on estimated end diastolic volume and global hypokinesia, below normal left ventricular ejection fraction estimated at 43% at stress. HISTORY OF PRESENT ILLNESS AND HOSPITAL SUMMARY: Please see my full history and physical for full details. Briefly, Mr. Marie is a 67-year-old male with a past medical history as above, who presented to the hospital with shortness of breath, wheezing, and productive cough that had been going on for a few days prior to admission. The patient had been treated for symptoms like this over the past few months with course of steroids, albuterol, and occasionally antibiotics. He states he was seen in the Urgent Care about 3 weeks ago for similar symptoms and he responded to prednisone and albuterol at that time. Here in the hospital, he seemed to improve with steroids and nebulizer; however , he has noticed his troponin was 0.06 and he had some EKG changes, specifically some ST depression, T wave inversion in the inferolateral leads, which appear to be related to LVH; however, these were new compared to his EKG about a month ago. He was brought in to the hospital. His pulmonary symptoms improved with steroids and nebulizers; however, due to his cardiac findings, he was kept over the weekend, underwent a nuclear cardiac stress test, the results of which are seen above. I spoke with Dr. Yang of Cardiology who reviewed the stress test and felt this was a low risk and I think the patient can follow up as an outpatient. He will be discharged with a few additional days of prednisone, refills of his albuterol inhaler and nebulizer vials at home. 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 TIME SPENT: Total time spent on this discharge 45 minutes. This is a summary of the hospitalization. Please see the full medical record for further details. [id number] #: [id number] MTDD
--- NOTE | 2017-07-01 13:22 | ED ---
Nicole Gant Edward, scribed for Mehul Cox MD on 06/28/17 at 0808 . Shortness of Breath - HPI Summary HPI Summary: 67 y/o male presents to the ED c/o SOB starting at around 07:45 this morning. Dyspnea is aggravated when the pt speaks for a long time. The symptoms are not alleviated by anything. Associated sx: productive cough. Denies CP, palpitations. Pt states he treated his SOB with a nebulizer at around 05:30 this morning. PMHx COPD. - History of Current Complaint Chief Complaint: EDShortnessOfBreath Time Seen by Provider: 06/28/17 08:01 Hx Obtained From: Patient Onset/Duration: Still Present Aggrevating Factors: Other - Speaking for a long time Alleviating Factors: Nothing Associated Signs & Symptoms: Cough (Productive) - Allergy/Home Medications Allergies/Adverse Reactions: Allergies Allergy/AdvReac Type Severity Reaction Status Date / Time Levocetirizine [From Xyzal] Allergy GI Upset Verified 06/05/17 07:44 PMH/Surg Hx/FS Hx/Imm Hx Previously Healthy: No Endocrine/Hematology History: Denies: Hx Diabetes, Hx Thyroid Disease Cardiovascular History: Denies: Hx Hypertension Respiratory History: Reports: Hx Asthma, Hx Chronic Obstructive Pulmonary Disease (COPD) GI History: Denies: Hx Ulcer Infectious Disease History: No Infectious Disease History: Denies: Hx Clostridium Difficile, Hx Hepatitis, Hx Human Immunodeficiency Virus (HIV), Hx of Known/Suspected MRSA, Hx Shingles, Hx Tuberculosis, Hx Known/ Suspected VRE, Hx Known/Suspected VRSA, History Other Infectious Disease, Traveled Outside the [place] in Last 30 Days - Family History Known Family History: Negative: Hypertension, Diabetes - Social History Alcohol Use: Rare Hx Substance Use: No Substance Use Type: Reports: None Hx Tobacco Use: No Smoking Status (MU): Never Smoked Tobacco Review of Systems Constitutional: Negative Eyes: Negative ENT: Negative Cardiovascular: Negative Negative: Palpitations, Chest Pain Positive: Shortness Of Breath, Cough Gastrointestinal: Negative Genitourinary: Negative Musculoskeletal: Negative Skin: Negative Neurological: Negative Psychological: Normal All Other Systems Reviewed And Are Negative: Yes Physical Exam - Summary Physical Exam Summary: VITAL SIGNS: Reviewed. GENERAL: Patient is a well-developed and nourished male who is lying comfortable in the stretcher. Patient is not in any acute respiratory distress. HEAD AND FACE: No signs of trauma. No ecchymosis, hematomas or skull depressions. No sinus tenderness. EYES: PERRLA, EOMI x 2, No injected conjunctiva, no nystagmus. EARS: Hearing grossly intact. Ear canals and tympanic membranes are within normal limits. MOUTH: Oropharynx within normal limits. NECK: Supple, trachea is midline, no adenopathy, no JVD, no carotid bruit, no c- spine tenderness, neck with full ROM. CHEST: Symmetric, no tenderness at palpation LUNGS: Bilateral wheezing. Crackles at the bases. CVS: Regular rate and rhythm, S1 and S2 present, no murmurs or gallops appreciated. ABDOMEN: Soft, non-tender. No signs of distention. No rebound no guarding, and no masses palpated. Bowel sounds are normal. EXTREMITIES: FROM in all major joints, no edema, no cyanosis or clubbing. NEURO: Alert and oriented x 3. No acute neurological deficits. Speech is normal and follows commands. SKIN: Dry and warm Triage Information Reviewed: Yes Vital Signs On Initial Exam: Initial Vitals Temp Pulse Resp BP Pulse Ox 97.9 F 81 20 165/92 96 06/28/17 07:44 06/28/17 07:44 06/28/17 07:44 06/28/17 07:44 06/28/17 07:44 Vital Signs Reviewed: Yes - Colin Coma Scale Coma Scale Total: 15 Diagnostics - Vital Signs Vital Signs Temp Pulse Resp BP Pulse Ox 06/28/17 07:44 97.9 F 81 20 165/92 96 - Laboratory Result Diagrams: 06/28/17 08:55 06/28/17 08:55 Lab Statement: Any lab studies that have been ordered have been reviewed, and results considered in the medical decision making process. - Radiology CXR Xray Interpretation: Positive (See Comments) - 1. SMALL RIGHT BASILAR INFILTRATE AND FINDINGS CONSISTENT WITH COPD. 2. SMALL HIATAL HERNIA. Radiology Interpretation Completed By: Radiologist Course/Dx - Course Assessment/Plan: 67 y/o male presents to the ED c/o SOB starting at 07:45 today. Dyspnea is aggravated when the pt speaks for a long time. The symptoms are not alleviated by anything. Associated sx: productive cough. Denies CP, palpitations. Pt states he treated his SOB with a nebulizer at around 05:30 this morning. PMHx COPD. CXR shows 1. SMALL RIGHT BASILAR INFILTRATE AND FINDINGS CONSISTENT WITH COPD. 2. SMALL HIATAL HERNIA. Test results without significant abnormalities except Trop 0.06. Pt does not c/o of CP, however he does c/o SOB. Pt was given ASA for the increase troponin to r/o ACS and given Duoneb and Solumedrol for COPD exacerbation. I discussed my PE and findings with Dr. Hernan Sales who accepted the pt for admission. Pt is hemodynamically stable, A&Ox3. - Diagnoses Provider Diagnoses: COPD exacerbation, elevated troponin r/o ACS - Physician Notifications Discussed Care of Patient With: Hernan Sales Time Discussed With Above Provider: 09:55 Instructed by Provider To: Admit As Inpatient Discharge - Discharge Plan Condition: Stable Disposition: ADMITTED TO [facility] The documentation as recorded by the Nicole rubio Edward accurately reflects the service I personally performed and the decisions made by me, Mehul Cox MD.
== END 2017-06-30 15:03 | disposition home or self-care (01) | DRG 141 ==
LOC: ED 07:28 → MEDTELE 09:59 → MED 09:59 → OBSVTOIN 13:44
PROVIDERS: ADMIT Hospitalist; ATTEND Hospitalist
DX: J45.901 Unspecified asthma with (acute) exacerbation (principal); J44.0 Chronic obstructive pulmonary disease with (acute) lower respiratory infection; J22 Unspecified acute lower respiratory infection; R06.09 Other forms of dyspnea; N20.0 Calculus of kidney; Z79.899 Other long term (current) drug therapy; Z88.8 Allergy status to other drugs, medicaments and biological substances
CPT/HCPCS: 36415; 71020; 78452; 80053; 82550; 82553; 83605; 83880; 84145; 84484; 85025; 86140; 87040; 87070; 87205; 90732; 93005; 93017; 93306; 94640; A9270-GY; A9502; J1650; J2930; J7512

== ENCOUNTER 2017-11-25 11:31 | Emergency (ER) | payer BC, MEDICARE ==
--- NOTE | 2017-11-25 12:35 | RAD ---
INDICATION: Cough. Short of breath COMPARISON: June 28, 2017 TECHNIQUE: PA and lateral dual-energy views were obtained. FINDINGS: Bones/Soft Tissues: There are no acute bony findings. Cardiomediastinal: The cardiomediastinal silhouette is normal. Lungs: There are no infiltrates. Pleura: There are no pleural effusions. Other: There is a hiatal hernia IMPRESSION: HIATAL HERNIA. NO ACTIVE DISEASE.
[2017-11-25 12:52] VITALS: BP 170/92
--- NOTE | 2017-11-25 14:57 | UC ---
Steven Gant Jennifer, scribed for Sarita Adame MD on 11/25/17 at 1237 . Respiratory Complaint HPI - HPI Summary HPI Summary: The patient is a 67 year old male who complains of a cough that began a week ago and worsened two days ago. He complains of yellow mucous. No hemoptysis. The patient denies fever perse, but hot and cold. Has had similar sx over the past few years. Reports that abx and steroids have helped He is using Advair, but reports is on the last few days remaining of current script. Also requests refill albuterol since his albuterol inhaler "got stuck" and doesn't work. Not sob while sitting down, but does start coughing when he has to move. No rash. No GI issues. - History of Current Complaint Chief Complaint: UCRespiratory Stated Complaint: URI Time Seen by Provider: 11/25/17 11:54 Hx Obtained From: Patient Onset/Duration: Sudden Onset, Lasting Weeks - one week, Still Present, Worse Since - two days ago Timing: Constant Severity Initially: Mild Severity Currently: None Pain Intensity: 0 Pain Scale Used: 0-10 Numeric Character: Cough: Productive, Sputum Description: - Yellow mucous Aggravating Factors: Nothing Alleviating Factors: Nothing - Allergies/Home Medications Allergies/Adverse Reactions: Allergies Allergy/AdvReac Type Severity Reaction Status Date / Time levocetirizine [From Xyzal] Allergy GI Upset Verified 11/25/17 11:44 Home Medications: Home Medications Fluticasone-Salmeterol 250-50* [Advair Diskus 250-50*] 1 puff INH BID 11/25/17 [ History Confirmed 11/25/17] PMH/Surg Hx/FS Hx/Imm Hx Previously Healthy: Yes - NEG: HTN, DM - Surgical History Surgical History: None - Family History Known Family History: Negative: Hypertension, Diabetes - Social History Alcohol Use: Rare Substance Use Type: None Smoking Status (MU): Never Smoked Tobacco - Immunization History Most Recent Influenza Vaccination: Not utd Most Recent Tetanus Shot: DPT January 2016 Most Recent Pneumonia Vaccination: never Review of Systems Constitutional: Negative - Fever, Fatigue Skin: Negative Eyes: Negative ENT: Nasal Discharge, Sinus Congestion Respiratory: Cough Cardiovascular: Negative Gastrointestinal: Negative Genitourinary: Negative Motor: Negative Neurovascular: Negative Musculoskeletal: Negative Neurological: Negative Psychological: Negative Is Patient Immunocompromised?: No All Other Systems Reviewed And Are Negative: Yes Physical Exam - Summary Physical Exam Summary: Appearance: Well-Nourished Eye Exam: Normal ENT Exam: Fluid behind ears. Throat is irritated in the back, no sores or exudates, uvula midline. Respiratory Exam: Resp rate normal. Chest non-tender, Breath sounds equal, scattered rhonchi throughout. Expiratory wheezes, + rhonchorous cough. No respiratory distress, No accessory muscle use Cardiovascular Exam: Normal Cardiovascular: Heart rate regular, good general skin color, good capillary refill RRR, No Murmur, Pulses Normal - sitting up. heart rate correlates w left radial pulse. Brisk Capillary Refill Abdominal Exam: Normal Abdomen Description: Nontender, No Organomegaly, Soft Bowel Sounds: Present Musculoskeletal Exam: Normal Musculoskeletal: Strength Intact Neurological Exam: Normal: nonfocal, grossly intact Psychological Exam: Normal: conversing easily and appropriately Skin Exam: Normal: no visible or reported rash. Nondiaphoretic. Triage Information Reviewed: Yes Vital Signs: Initial Vital Signs Temp 97.8 F 11/25/17 11:39 Pulse 82 11/25/17 11:39 Resp 18 11/25/17 11:39 BP 178/102 11/25/17 11:39 Pulse Ox 98 11/25/17 11:39 Vital Signs Reviewed: Yes UC Diagnostic Evaluation - Laboratory O2 Sat by Pulse Oximetry: 98 - Radiology Xray Interpretation: No Acute Changes - CXR. HIATAL HERNIA. NO ACTIVE DISEASE. Radiology Interpretation Completed By: Radiologist Respiratory Course/Dx - Course Course Of Treatment: Declines duoneb. Reports that he has a nebulizer at home. CXR - NAD. reviewed with Mr. Marie, including + H. Hernia. He reports that he is aware of this already. Work note written. Reviewed BP - it is high today , advised not to take decongestants. However, this may be related to underlying chronic htn. He will f/u PCP accordingly. D/w Mr. Marie coa / tx plan. He seems pleased and appreciative. Questions as posed answered to the best of my ability. - Differential Dx/Diagnosis Provider Diagnoses: Acute bronchitis with wheezing. Likely superimposed upon copd. High blood pressure Discharge - Discharge Plan Condition: Stable Disposition: HOME Prescriptions: Albuterol HFA INHALER* [Ventolin HFA Inhaler*] 1 - 2 puff INH Q6H PRN #1 mdi PRN Reason: Wheezing Azithromyxin PABLO (NF) [Z-Pablo (Zithromax) 250 mg tabs #6] 2 tab PO .TODAY, THEN 1 DAILY #6 tab Fluticasone-Salmeterol 250-50* [Advair Diskus 250-50*] 1 puff INH BID #1 diskus predniSONE TAB* [Deltasone TAB*] 10 mg PO DAILY #20 tab Patient Education Materials: Prednisone (By mouth), Acute Bronchitis (ED), Hypertension (ED), Bronchospasm (ED) Forms: *Work Release Referrals: Chastity Arriola MD [Primary Care Provider] - Additional Instructions: Your blood pressure was elevated during today's visit, 170/92. Please follow up with your primary care provider in 1-2 weeks. Seek medical attention for worse or new problems in the meantime. The documentation as recorded by the Steven rubio Jennifer accurately reflects the service I personally performed and the decisions made by me, Sarita Adame MD.
== END 2017-11-25 13:00 | disposition home or self-care (01) ==
LOC: UCEAST 11:31
DX: J20.9 Acute bronchitis, unspecified (principal); R03.0 Elevated blood-pressure reading, without diagnosis of hypertension; K44.9 Diaphragmatic hernia without obstruction or gangrene; Z88.8 Allergy status to other drugs, medicaments and biological substances
CPT/HCPCS: 71046; 99212; G0463

== ENCOUNTER 2018-06-08 07:28 | Emergency (ER) | payer BC ==
[2018-06-08 07:55] VITALS: BP 188/114
--- NOTE | 2018-06-08 08:23 | UC ---
Respiratory Complaint HPI - HPI Summary HPI Summary: This patient is a 67 year old M presenting to [facility] with a chief complaint of productive cough with brown sputum since about 1 month ago. He had bronchospasms at 0200 and used albuterol inhaler and is trying Benadryl (25 mg) . The patient was seen here in [facility] on 11/16/17 with similar symptoms and was given 8 days of prednisone and Zpack which worked well for him. The patient rates the pain 0/10 in severity. Symptoms aggravated by nothing. Symptoms alleviated by albuterol neb, Advair, and Mucinex. Patient reports nasal congestion. Patient denies fever, swelling in bilateral LE, calf pain, and CP. In June of 2017, he was voluntarily admitted in the ED and a stress test was done and came back negative. PMHx of hiatal hernia. - History of Current Complaint Chief Complaint: UCGeneralIllness Stated Complaint: CHEST CONGESTION Time Seen by Provider: 06/08/18 08:10 Hx Obtained From: Patient Onset/Duration: Sudden Onset, Lasting Weeks - since about 1 month ago, Still Present Severity Currently: None Pain Intensity: 0 Pain Scale Used: 0-10 Numeric Character: Cough: Productive, Sputum Description: - brown Aggravating Factors: Nothing Alleviating Factors: OTC Meds - albuterol neb, Advair, Mucinex, prednisone and Zpack Associated Signs And Symptoms: Negative: Fever - Patient reports nasal congestion. Patient denies fever, swelling in bilateral LE, calf pain, and CP. - Allergies/Home Medications Allergies/Adverse Reactions: Allergies Allergy/AdvReac Type Severity Reaction Status Date / Time levocetirizine [From Xyzal] Allergy GI Upset Verified 06/08/18 07:57 Home Medications: Home Medications diphenhydrAMINE HCl [Benadryl Allergy 25 MG CAP] 1 tab PO DAILY 06/08/18 [ History Confirmed 06/08/18] PMH/Surg Hx/FS Hx/Imm Hx Endocrine History: Other Other Endocrine History: denies DM Cardiovascular History: Other Other Cardiovascular History: denies HTN, CAD - Surgical History Surgical History: None - Family History Known Family History: Negative: Cardiac Disease, Hypertension, Diabetes - Social History Alcohol Use: Rare Substance Use Type: None Smoking Status (MU): Never Smoked Tobacco - Immunization History Most Recent Influenza Vaccination: Not utd Most Recent Tetanus Shot: DPT January 2016 Most Recent Pneumonia Vaccination: never Review of Systems Constitutional: Other - denies fever ENT: Other - nasal congestion Respiratory: Cough - productive with brown sputum Cardiovascular: Other - denies CP Musculoskeletal: Other: - denies swelling in bilateral LE and calf pain All Other Systems Reviewed And Are Negative: Yes Physical Exam - Summary Physical Exam Summary: General: well-appearing, no pain distress Skin: warm, color reflects adequate perfusion, dry Head: normal Eyes: EOMI, ARISTEO ENT: normal Neck: supple, nontender Respiratory: Breath sounds present. Some wheezes and rhonchi bilaterally in the lower lung garcia. Cardiovascular: RRR Abdomen: soft, nontender Bowel: present Musculoskeletal: normal, strength/ROM intact Neurological: sensory/motor intact, A&O x3 Psychological: affect/mood appropriate Triage Information Reviewed: Yes Vital Signs: Initial Vital Signs Temp 97.4 F 06/08/18 07:45 Pulse 68 06/08/18 07:45 Resp 20 06/08/18 07:45 BP 188/114 06/08/18 07:45 Pulse Ox 98 06/08/18 07:45 Vital Signs Reviewed: Yes Diagnostic Evaluation - Laboratory O2 Sat by Pulse Oximetry: 98 - Radiology Radiology Interpretation Completed By: Radiologist - CXR reveals no active cardiopulmonary disease is noted. [facility] physician has reviewed this radiology report. Respiratory Course/Dx - Course Course Of Treatment: Medications reviewed. Allergies noted. BP noted and advised to follow up with PCP. - Differential Dx/Diagnosis Provider Diagnoses: BRONCHITIS WITH BRONCHOSPASM. Elevated BP without dx of HTN Discharge - Sign-Out/Discharge Documenting (check all that apply): Patient Departure - discharge All imaging exams completed and their final reports reviewed: Yes - Discharge Plan Condition: Stable Disposition: HOME Prescriptions: Azithromyxin PABLO (NF) [Z-Pablo (Zithromax) 250 mg tabs #6] 2 tab PO .TODAY, THEN 1 DAILY #6 tab predniSONE TAB* [Deltasone 10 MG TAB*] 10 mg PO SEE INSTRUCTIONS #20 tab Patient Education Materials: Acute Bronchitis (ED), Bronchospasm (ED) Referrals: Elvis Lizama MD [Primary Care Provider] - Additional Instructions: FOLLOW UP WITH YOUR DOCTOR. GET RECHECKED FOR ANY WORSENING OF YOUR CONDITION OR QUESTIONS OR CONCERNS. - Billing Disposition and Condition Condition: STABLE Disposition: Home - Attestation Statements Document Initiated by Scribe: Yes Documenting Scribe: Kevin Salguero Provider For Whom Scribe is Documenting (Include Credential): Alex Luo MD Scribe Attestation: I, Kevin Salguero, scribed for Alex Luo MD on 06/08/18 at 1135. Scribe Documentation Reviewed: Yes Provider Attestation: The documentation as recorded by the Kevin rubio accurately reflects the service I personally performed and the decisions made by me, Alex Luo MD
--- NOTE | 2018-06-08 08:59 | RAD ---
Indication: Cough, sputum production. 2 views of the chest including dual energy PA views demonstrates hyperinflated lung garcia. No evidence of alveolar consolidation is noted. No pleural fluid is identified. IMPRESSION: No active cardiopulmonary disease is noted.
== END 2018-06-08 09:22 | disposition home or self-care (01) ==
LOC: UCEAST 07:28
DX: J20.9 Acute bronchitis, unspecified (principal); R03.0 Elevated blood-pressure reading, without diagnosis of hypertension; Z88.8 Allergy status to other drugs, medicaments and biological substances
CPT/HCPCS: 71046; 99212; G0463

== ENCOUNTER 2018-07-11 09:59 | Emergency (ER) | payer BC ==
[2018-07-11 10:20] VITALS: BP 181/105
--- NOTE | 2018-07-11 10:31 | UC ---
Respiratory Complaint HPI - HPI Summary HPI Summary: Patient Chief Complaint: cough, chronic intermittent; requesting albuterol solution refill. Pain quality: No pain MD note: Vital signs stable; BP 181/105. No BP medications. Patient doesn't think he needs medication. Nurses Note: Was seen on the , diagnosed with bronchitis. still having a cough, head congestion. Would like new prescription for albuterol neb. - History of Current Complaint Chief Complaint: UCRespiratory Stated Complaint: COUGH CONGESTION Time Seen by Provider: 07/11/18 10:22 Pain Intensity: 0 - Allergies/Home Medications Allergies/Adverse Reactions: Allergies Allergy/AdvReac Type Severity Reaction Status Date / Time levocetirizine [From Xyzal] Allergy GI Upset Verified 06/08/18 07:57 peanut Allergy Wheezing Verified 07/11/18 10:20 shellfish derived Allergy Hives Verified 07/11/18 10:20 Home Medications: Home Medications Aspirin [Aspirin Childrens 81 MG] 162 mg PO DAILY 07/11/18 [History Confirmed ] PMH/Surg Hx/FS Hx/Imm Hx - Additional Past Medical History Additional PMH: Review of visit history: frequent visits for cough; elevated BP noted in past. Review of chronic conditions: COPD; hypertension. Medications and Allergies: albuterol. Family History: -HYPTERTENSION -Denies heart disease, stroke, diabetes, cancer. SOCIAL HISTORY: Employment: 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 Habits: non smoker Previously Healthy: Yes - Surgical History Surgical History: None - Family History Known Family History: Negative: Cardiac Disease, Hypertension, Diabetes - Social History Alcohol Use: Occasionally Substance Use Type: None Smoking Status (MU): Never Smoked Tobacco - Immunization History Most Recent Influenza Vaccination: Not utd Most Recent Tetanus Shot: DPT January 2016 Most Recent Pneumonia Vaccination: never Review of Systems Constitutional: Negative Skin: Negative Eyes: Negative ENT: Negative Respiratory: Other - extended expiratory phase; few wheezes noted Cardiovascular: Negative Gastrointestinal: Negative Genitourinary: Negative Motor: Negative Neurovascular: Negative Musculoskeletal: Negative Neurological: Negative Psychological: Negative Is Patient Immunocompromised?: No All Other Systems Reviewed And Are Negative: Yes - Comments Additional Review of Systems Comments: A 12 point review of systems was completed and was significantly positive for mild breathing discomfort. The remainder of the review was negative except as stated above in the ROS or HPI. Physical Exam - Summary Physical Exam Summary: Appearance: The patient is well-appearing, is in no pain or distress, and is well-nourished. Eyes: Conjunctiva are clear. Pupils are equal and reactive to light and accommodation. Extra ocular muscle movement is intact. ENT: The hearing is grossly normal, the pharynx is normal, and the TMs are normal. There is no muffled or hoarse voice. No stridor. Neck: The neck is supple and there is no lymphadenopathy. Respiratory: The chest is nontender to palpation and without crepitus. The lungs are clear, and there is no respiratory distress. No rales. Extended expiratory phase; few scattered wheezings. Cardiovascular: Heart sounds reveal a regular rate and rhythm. There are no clicks, rubs or murmurs. There are no carotid bruits or thrills. Circulation is grossly intact. Abdomen: The abdomen is soft and nontender. There is no organomegaly. Bowel sounds are present and within normal limits. No point tenderness at McBurneys point. Musculoskeletal: Strength is intact. The patient moves all extremities. x. Neurological: The patient is alert. Motor and sensory are examination grossly intact. Speech is normal. Psychological: The patient displays age appropriate behavior Skin: Negative for rashes. Triage Information Reviewed: Yes Vital Signs: Initial Vital Signs Temp 98.4 F 07/11/18 10:14 Pulse 80 07/11/18 10:14 Resp 16 07/11/18 10:14 BP 181/105 07/11/18 10:14 Pulse Ox 96 07/11/18 10:14 Diagnostic Evaluation - Laboratory O2 Sat by Pulse Oximetry: 96 Respiratory Course/Dx - Course Course Of Treatment: MEDICATIONS REVIEWED: Medications have been included in the original chart and reviewed. HYPERTENSION REVIEWED: Patient instructed to follow up. This is a 68-year-old white male who comes to the urgent care Center requesting albuterol solution and the patient has an extended history of visits for cough and shortness of breath. Seen this past May. He responds to dilators and prednisone. His reactive airway disease does not require antibiotics. I was concerned about the patient's blood pressure reading and discussed this with him at length. He states that his blood pressure is variable and he does not need blood pressure medication. I urged him to follow-up with his physician. - Differential Dx/Diagnosis Differential Diagnosis/HQI/PQRI: Bronchitis, Exacerbation Of COPD, Pulmonary Embolism Provider Diagnoses: exacerbation of COPD Discharge - Sign-Out/Discharge Documenting (check all that apply): Patient Departure All imaging exams completed and their final reports reviewed: No Studies - Discharge Plan Condition: Stable Disposition: HOME Prescriptions: Albuterol 2.5MG/3ML (0.083%)* [Ventolin 2.5 MG/3 ML NEB.ROBERT*] 2.5 mg INH Q4H # 60 neb.[email or web address] MDD 6 Inhaler, Assist Devices [Aerochamber Mv] 1 mis XX Q6HR #1 mis predniSONE TAB* [Deltasone 20 MG TAB*] 20 mg PO DAILY #10 tab MDD 3 a day Patient Education Materials: COPD (Chronic Obstructive Pulmonary Disease) (DC) Forms: *Work Release Referrals: Elvis Lizama MD [Primary Care Provider] - Additional Instructions: WE DISCUSSED: PLEASE SEEK CARE AT THE EMERGENCY DEPARTMENT IF SYMPTOMS WORSEN OR IF NEW SYMPTOMS DEVELOP. FOLLOW UP WITH YOUR PRIMARY CARE PHYSICIAN IF CONDITION CONTINUES BEYOND 3 DAYS WITHOUT IMPROVEMENT. YOUR DIAGNOSIS IS: worsening of COPD; Hypertension YOUR PRESCRIPTION RECOMMENDATION IS: albuterol inhalation; prednisone OTHER INSTRUCTIONS: Hypertension Discharge Instructions: Your blood pressure reading today was 181/105 indicating significant HYPERTENSION. Follow-up with your primary care provider within 2 weeks for blood pressure check and appropriate recommendations and treatment, as needed. For pain: Ibuprofen (Motrin and other brand names) 400-600mg PLUS acetaminophen (Tylenol and other brand names) 500mg - 1000mg every 8 hours. Maximum is 3 doses a day. If this dosage is required for more than 5 days, you should re-check with your doctor. The combination of these two over-the- counter medications can be more effective than each one taken alone. Please check with the pharmacist if you have questions about your allergies to these medications. - Billing Disposition and Condition Condition: STABLE Disposition: Home
== END 2018-07-11 11:01 | disposition home or self-care (01) ==
LOC: UCEAST 09:59
DX: J44.1 Chronic obstructive pulmonary disease with (acute) exacerbation (principal); I10 Essential (primary) hypertension; Z91.010 Allergy to peanuts; Z91.013 Allergy to seafood; Z88.8 Allergy status to other drugs, medicaments and biological substances; Z79.82 Long term (current) use of aspirin
CPT/HCPCS: 99212; G0463

== ENCOUNTER 2018-10-02 07:31 | Emergency (ER) | payer BC ==
[2018-10-02] MEDS ORDERED: Albuterol 2.5 MG/3 ML NEB.SOL* (0.083%) INH ONE (08:20)
[2018-10-02] MEDS ORDERED: Ipratropium 0.5MG/2.5ML NEB* 0.5 MG/2.5 ML NEB.SOLN INH ONE (08:20)
--- NOTE | 2018-10-02 08:26 | UC ---
Respiratory Complaint HPI - HPI Summary HPI Summary: The patient is a 68-year-old male who has had a productive cough for 2 weeks. He has a history of asthma or COPD. He has been using his Advair. He used his rescue inhaler once last night. He denies any chest pain or shortness of breath. He denies any fever or chills. - History of Current Complaint Chief Complaint: UCGeneralIllness Stated Complaint: CONGESTED Time Seen by Provider: 10/02/18 07:59 Hx Obtained From: Patient Onset/Duration: Gradual Onset Timing: Constant Severity Initially: Mild Severity Currently: Moderate Pain Intensity: 0 Pain Scale Used: 0-10 Numeric Character: Cough: Productive Aggravating Factors: Exertion, Deep Breaths, Recumbent Position Alleviating Factors: Bronchodilator Associated Signs And Symptoms: Positive: Wheezing - Allergies/Home Medications Allergies/Adverse Reactions: Allergies Allergy/AdvReac Type Severity Reaction Status Date / Time levocetirizine [From Xyzal] Allergy GI Upset Verified 10/02/18 07:42 peanut Allergy Wheezing Verified 10/02/18 07:42 shellfish derived Allergy Hives Verified 10/02/18 07:42 PMH/Surg Hx/FS Hx/Imm Hx Previously Healthy: Yes Cardiovascular History: Hypertension Respiratory History: COPD, Bronchitis - Surgical History Surgical History: None - Family History Known Family History: Negative: Cardiac Disease, Hypertension, Diabetes - Social History Alcohol Use: Occasionally Substance Use Type: None Smoking Status (MU): Never Smoked Tobacco - Immunization History Most Recent Influenza Vaccination: Not utd Most Recent Tetanus Shot: DPT January 2016 Most Recent Pneumonia Vaccination: never Review of Systems All Other Systems Reviewed And Are Negative: Yes Constitutional: Positive: Negative Skin: Positive: Negative Eyes: Positive: Negative ENT: Positive: Negative Respiratory: Positive: Cough Cardiovascular: Positive: Negative Gastrointestinal: Positive: Negative Genitourinary: Positive: Negative Motor: Positive: Negative Neurovascular: Positive: Negative Musculoskeletal: Positive: Negative Neurological: Positive: Negative Psychological: Positive: Negative Physical Exam Triage Information Reviewed: Yes Appearance: Well-Appearing, No Pain Distress, Well-Nourished Vital Signs: Initial Vital Signs Temp 97.8 F 10/02/18 07:47 Pulse 76 10/02/18 07:47 Resp 18 10/02/18 07:47 BP 0/0 10/02/18 07:47 Pulse Ox 96 10/02/18 07:47 Vital Signs Reviewed: Yes Eyes: Positive: Conjunctiva Clear ENT: Positive: Hearing grossly normal, Pharynx normal, Uvula midline. Negative : Nasal congestion, Nasal drainage, Muffled voice, Sinus tenderness Neck exam: Normal Neck: Positive: Supple, Nontender, No Lymphadenopathy Respiratory: Positive: Lungs clear, Normal breath sounds, No respiratory distress, No accessory muscle use, Other: - wheeze heard RLL which cleared post tussively Cardiovascular: Positive: RRR, No Murmur. Negative: Tachycardia, Bradycardia Musculoskeletal: Positive: Strength Intact, ROM Intact, No Edema Neurological Exam: Normal Psychological Exam: Normal Skin Exam: Normal UC Diagnostic Evaluation - Laboratory O2 Sat by Pulse Oximetry: 96 - normal/not hypoxic Respiratory Course/Dx - Differential Dx/Diagnosis Provider Diagnosis: Acute bronchitis Discharge - Sign-Out/Discharge Documenting (check all that apply): Patient Departure All imaging exams completed and their final reports reviewed: No Studies - Discharge Plan Condition: Stable Disposition: HOME Prescriptions: Amoxicillin PO (*) [Amoxicillin 875 MG (*)] 875 mg PO BID #14 tab Patient Education Materials: Acute Bronchitis (ED) Referrals: Elvis Lizama MD [Primary Care Provider] - 1 Week (BP needs to be recheckedc) Additional Instructions: your BP needs rechecking - Billing Disposition and Condition Condition: STABLE Disposition: Home
[2018-10-02 09:16] VITALS: BP 175/100
== END 2018-10-02 09:16 | disposition home or self-care (01) ==
LOC: UCEAST 07:31
DX: J20.9 Acute bronchitis, unspecified (principal)
CPT/HCPCS: 99212; G0463

== ENCOUNTER 2019-02-04 07:31 | Emergency (ER) | payer BC ==
[2019-02-04 07:44] VITALS: BP 181/99
--- NOTE | 2019-02-04 08:54 | UC ---
Respiratory Complaint HPI - HPI Summary HPI Summary: 68-year-old male comes in with a chief complaint of cough chest congestion and wheezing for about a week. Things are getting worse he is having more wheezing. He's having obtained colored sputum. No chest pain. When he is laying down his wheezing is worse. He did use a DuoNeb today which did help some but then the symptoms come back. No complaint of pedal edema or chest pain. He does have a prior history of asthma. - History of Current Complaint Chief Complaint: UCRespiratory Stated Complaint: COUGH CONGESTION RESP ISSUE Time Seen by Provider: 02/04/19 08:40 Pain Intensity: 4 - Allergies/Home Medications Allergies/Adverse Reactions: Allergies Allergy/AdvReac Type Severity Reaction Status Date / Time levocetirizine [From Xyzal] Allergy GI Upset Verified 02/04/19 07:44 peanut Allergy Wheezing Verified 02/04/19 07:44 shellfish derived Allergy Hives Verified 02/04/19 07:44 red wise Allergy flushed Uncoded 02/04/19 07:45 PMH/Surg Hx/FS Hx/Imm Hx Previously Healthy: Yes Respiratory History: Asthma - Surgical History Surgical History: None - Family History Known Family History: Negative: Cardiac Disease, Hypertension, Diabetes - Social History Alcohol Use: Occasionally Substance Use Type: None Smoking Status (MU): Never Smoked Tobacco - Immunization History Most Recent Influenza Vaccination: Not utd Most Recent Tetanus Shot: DPT January 2016 Most Recent Pneumonia Vaccination: never Review of Systems All Other Systems Reviewed And Are Negative: Yes Constitutional: Positive: Negative Skin: Positive: Negative Eyes: Positive: Negative ENT: Positive: Nasal Discharge, Sinus Congestion Respiratory: Positive: Shortness Of Breath, Cough, Other - SEE HPI Cardiovascular: Positive: Negative Gastrointestinal: Positive: Negative Motor: Positive: Negative Neurovascular: Positive: Negative Musculoskeletal: Positive: Negative Neurological: Positive: Negative Psychological: Positive: Negative Is Patient Immunocompromised?: No Physical Exam Triage Information Reviewed: Yes Appearance: No Pain Distress, Well-Nourished, Ill-Appearing - MILD Vital Signs: Initial Vital Signs Temp 98.6 F 02/04/19 07:40 Pulse 78 02/04/19 07:40 Resp 16 02/04/19 07:40 BP 181/99 02/04/19 07:40 Pulse Ox 98 02/04/19 07:40 Vital Signs Reviewed: Yes Eye Exam: Normal Eyes: Positive: Conjunctiva Clear ENT: Positive: Pharyngeal erythema, Nasal congestion, Nasal drainage, TMs normal Neck: Positive: Supple Respiratory: Positive: Lungs clear, Normal breath sounds, No respiratory distress Cardiovascular: Positive: RRR Musculoskeletal Exam: Normal Musculoskeletal: Positive: Strength Intact, ROM Intact Neurological: Positive: Alert, Muscle Tone Normal Psychological Exam: Normal Psychological: Positive: Age Appropriate Behavior Skin Exam: Normal Respiratory Course/Dx - Course Course Of Treatment: PATIENT WISHES TO BE ON ANTIBIOTICS AT THIS TIME - Differential Dx/Diagnosis Provider Diagnosis: Bronchitis with bronchospasm Discharge - Sign-Out/Discharge Documenting (check all that apply): Patient Departure All imaging exams completed and their final reports reviewed: No Studies - Discharge Plan Condition: Stable Disposition: HOME Prescriptions: Azithromyxin MARGI (NF) [Z-Margi (Zithromax) 250 mg tabs #6] 2 tab PO .TODAY, THEN 1 DAILY #6 tab Fluticasone-Salmeterol 250-50* [Advair Diskus 250-50*] 1 puff INH BID #1 diskus predniSONE TAB* [Deltasone 20 MG TAB*] 40 mg PO DAILY #10 tab Patient Education Materials: Acute Bronchitis (ED), Bronchospasm (ED) Referrals: Elvis Lizama MD [Primary Care Provider] - Additional Instructions: FOLLOW UP WITH YOUR DOCTOR IF NOT COMPLETELY IMPROVED. GET RECHECKED SOONER IF YOUR CONDITION WORSENS OR ANY QUESTIONS OR CONCERNS. - Billing Disposition and Condition Condition: STABLE Disposition: Home
== END 2019-02-04 08:55 | disposition home or self-care (01) ==
LOC: UCEAST 07:31
DX: J20.9 Acute bronchitis, unspecified (principal); J45.909 Unspecified asthma, uncomplicated
CPT/HCPCS: 99212; G0463

== ENCOUNTER 2019-06-18 14:42 | Emergency (ER) | payer BC ==
--- NOTE | 2019-06-18 15:22 | UC ---
Respiratory Complaint HPI - HPI Summary HPI Summary: 69 yo male presents with cough. He tells me that he suffers from allergies and takes mucinex and benadryl in addition to his usual inhalers. Over the last week or so has felt increased wheezing in his chest with a dry cough. He has been using his albuterol nebulizer and inhaler at home with good intermittent relief, but symptoms will return. He denies fever, chills, sinus symptoms, sore throat, SOB, chest pain, rash. - History of Current Complaint Chief Complaint: UCRespiratory Stated Complaint: URI Time Seen by Provider: 06/18/19 15:01 Hx Obtained From: Patient Onset/Duration: Gradual Onset Severity Currently: None Pain Intensity: 0 - Allergies/Home Medications Allergies/Adverse Reactions: Allergies Allergy/AdvReac Type Severity Reaction Status Date / Time levocetirizine [From Xyzal] Allergy GI Upset Verified 06/18/19 15:00 peanut Allergy Wheezing Verified 06/18/19 15:00 shellfish derived Allergy Hives Verified 06/18/19 15:00 red wise Allergy flushed Uncoded 02/04/19 07:45 PMH/Surg Hx/FS Hx/Imm Hx - Additional Past Medical History Additional PMH: Allergies Respiratory History: Asthma - Surgical History Surgical History: None - Family History Known Family History: Negative: Cardiac Disease, Hypertension, Diabetes - Social History Occupation: Employed Full-time Lives: With Family Alcohol Use: None Substance Use Type: None Smoking Status (MU): Never Smoked Tobacco - Immunization History Most Recent Influenza Vaccination: Not utd Most Recent Tetanus Shot: DPT January 2016 Most Recent Pneumonia Vaccination: never Review of Systems All Other Systems Reviewed And Are Negative: No Constitutional: Positive: Negative Skin: Positive: Negative Eyes: Positive: Negative ENT: Positive: Negative Respiratory: Positive: Cough Cardiovascular: Positive: Negative Gastrointestinal: Positive: Negative Neurovascular: Positive: Negative Neurological: Positive: Negative Psychological: Positive: Negative Physical Exam - Summary Physical Exam Summary: GENERAL: NAD. WDWN. No pain distress. SKIN: No rashes, sores, lesions, or open wounds. HEENT: Head: AT/NC Eyes: Conjunctiva clear without inflammation or discharge. Ears: Hearing grossly normal. TMs intact, no bulging, erythema, or edema. Nose: Nasal mucosa pink and moist. NTTP maxillary and frontal sinus. Throat: Posterior oropharynx without exudates, erythema, or tonsillar enlargement. Uvula midline. NECK: Supple. Nontender. No lymphadenopathy. CHEST: Mild wheezing throughout. No r/r. No accessory muscle use. Breathing comfortably and in no distress. CV: RRR. Pulses intact. Cap refill <2seconds NEURO: Alert. PSYCH: Age appropriate behavior. Triage Information Reviewed: Yes Vital Signs: Initial Vital Signs Temp 97.7 F 06/18/19 14:50 Pulse 84 06/18/19 14:50 Resp 16 06/18/19 14:50 BP 189/110 06/18/19 14:50 Pulse Ox 98 06/18/19 14:50 Vital Signs: Temp Pulse Resp BP Pulse Ox 97.7 F 84 16 158/98 98 06/18/19 14:50 06/18/19 14:50 06/18/19 14:50 06/18/19 15:31 06/18/19 14:50 Vital Signs Reviewed: Yes Respiratory Course/Dx - Course Course Of Treatment: Suspect viral illness vs asthma exacerbation. Advised to continue at home inhalers and will rx for prednisone. Pt's BP is elevated today. He is not having any dizziness, headaches, SOB, chest pain, n/v, weakness, numbness. He states he has "white coat syndrome" and does not want to go to the ED today for this. - Differential Dx/Diagnosis Provider Diagnosis: Asthma exacerbation Discharge ED - Sign-Out/Discharge Documenting (check all that apply): Patient Departure All imaging exams completed and their final reports reviewed: No Studies - Discharge Plan Condition: Stable Disposition: HOME Prescriptions: predniSONE TAB* [Deltasone 20 MG TAB*] 40 mg PO DAILY #10 tab Patient Education Materials: Acute Cough (ED) Referrals: Elvis Lizama MD [Primary Care Provider] - Additional Instructions: If you develop a fever, shortness of breath, chest pain, new or worsening symptoms - please call your PCP or go to the ED immediately. Your blood pressure was high at todays visit. Please see your primary provider within 4 weeks for recheck and re-evaluation. - Billing Disposition and Condition Condition: STABLE Disposition: Home
[2019-06-18 15:31] VITALS: BP 158/98
== END 2019-06-18 15:31 | disposition home or self-care (01) ==
LOC: UCEAST 14:42
DX: J45.901 Unspecified asthma with (acute) exacerbation (principal); R03.0 Elevated blood-pressure reading, without diagnosis of hypertension; Z88.8 Allergy status to other drugs, medicaments and biological substances; Z91.010 Allergy to peanuts; Z91.013 Allergy to seafood; Z91.018 Allergy to other foods
CPT/HCPCS: 99212; G0463

== ENCOUNTER 2019-09-03 10:30 | Emergency (ER) | payer BC ==
[2019-09-03 11:00] VITALS: BP 185/96
--- NOTE | 2019-09-03 11:32 | UC ---
Respiratory Complaint HPI - HPI Summary HPI Summary: PATIENT WITH A HISTORY OF ASTHMA COMING IN WITH 5 DAYS OF COUGH AND CHEST CONGESTION. NO FEVER, NAUSEA/VOMITING. HE HAS BEEN USING HIS DAILY MAINTENANCE ASTHMA INHALER PRESCRIBED. ALBUTEROL INHALER DOES HELP TRANSIENTLY WITH HIS SYMPTOMS. STATES HE IS FOLLOWING REGULARLY WITH DR. LIZAMA. UPON REVIEW OF HIS CHART IT SEEMS HE COMES IN MULTIPLE TIMES EVERY YEAR WITH RESPIRATORY SYMPTOMS. HAS NEVER SEEN A ENGINEERING OPERATIONS LEADER. BLOOD PRESSURE HAS HISTORICALLY BEEN UNCONTROLLED SIMILARLY. - History of Current Complaint Chief Complaint: UCGeneralIllness Stated Complaint: CHEST CONGESTION, AND COUGH Time Seen by Provider: 09/03/19 10:57 Hx Obtained From: Patient Onset/Duration: Gradual Onset, Lasting Days, Still Present Timing: Constant Severity Initially: Moderate Severity Currently: Moderate Pain Intensity: 0 Pain Scale Used: 0-10 Numeric Character: Cough: Nonproductive Aggravating Factors: Nothing Alleviating Factors: Bronchodilator Associated Signs And Symptoms: Positive: Wheezing. Negative: Dyspnea, Fever - Allergies/Home Medications Allergies/Adverse Reactions: Allergies Allergy/AdvReac Type Severity Reaction Status Date / Time levocetirizine [From Xyzal] Allergy GI Upset Verified 09/03/19 10:53 peanut Allergy Wheezing Verified 09/03/19 10:53 shellfish derived Allergy Hives Verified 09/03/19 10:53 red wise Allergy flushed Uncoded 09/03/19 10:53 PMH/Surg Hx/FS Hx/Imm Hx Respiratory History: Asthma - Surgical History Surgical History: None - Family History Known Family History: Negative: Cardiac Disease, Hypertension, Diabetes - Social History Alcohol Use: None Substance Use Type: None Smoking Status (MU): Never Smoked Tobacco - Immunization History Most Recent Influenza Vaccination: Not utd Most Recent Tetanus Shot: DPT January 2016 Most Recent Pneumonia Vaccination: never Review of Systems All Other Systems Reviewed And Are Negative: Yes Constitutional: Positive: Negative ENT: Positive: Nasal Discharge Respiratory: Positive: Cough, Other - WHEEZE. Negative: Shortness Of Breath Cardiovascular: Positive: Negative Gastrointestinal: Positive: Negative Physical Exam Triage Information Reviewed: Yes Appearance: Well-Appearing, No Pain Distress, Well-Nourished Vital Signs: Initial Vital Signs Temp 98.6 F 09/03/19 10:57 Pulse 74 09/03/19 10:57 Resp 18 09/03/19 10:57 BP 185/96 09/03/19 10:57 Pulse Ox 98 09/03/19 10:57 Vital Signs Reviewed: Yes Eyes: Positive: Conjunctiva Clear ENT: Positive: Hearing grossly normal, Pharynx normal, TMs normal Neck: Positive: Supple, Nontender, No Lymphadenopathy Respiratory: Positive: No respiratory distress, No accessory muscle use, Decreased breath sounds, Wheezing - MILD INTERMITTENT Cardiovascular Exam: Normal Abdomen Description: Positive: Soft Musculoskeletal: Positive: No Edema Neurological: Positive: Alert Psychological: Positive: Age Appropriate Behavior Skin: Negative: Rashes Respiratory Course/Dx - Course Course Of Treatment: PATIENT'S SYMPTOMS MORE CONSISTENT WITH ASTHMA EXACERBATION THAN WITH BACTERIAL INFECTION. THERE MAY BE A VIRAL COMPONENT TO THIS HOWEVER IN ANY CASE NO INDICATION FOR ANTIBIOTICS AT PRESENT. PATIENT DID WELL WITH PREDNISONE A COUPLE OF MONTHS AGO AND IS IN AGREEMENT THAT THIS WOULD BE HELPFUL TODAY. WILL ALSO REFILL ALBUTEROL INHALER. RECOMMEND PULMONOLOGY EVALUATION. ALSO DISCUSSED HIS UNCONTROLLED HIGH BLOOD PRESSURE. PATIENT HAS AN APPOINTMENT WITH DR. LIZAMA COMING UP IN THE NEXT FEW WEEKS AND STATES HE WILL ADDRESS THIS WITH HIM AT THAT TIME. ENCOURAGED TO GO TO THE ER WITHOUT FAIL IF HE DEVELOPS HEADACHE, CHEST PAIN, SHORTNESS OF BREATH, NAUSEA OR ANY OTHER CONCERNING SYMPTOMS. - Differential Dx/Diagnosis Provider Diagnosis: Asthma exacerbation Discharge ED - Sign-Out/Discharge Documenting (check all that apply): Patient Departure All imaging exams completed and their final reports reviewed: No Studies - Discharge Plan Condition: Stable Disposition: HOME Prescriptions: Albuterol HFA INHALER* [Ventolin HFA Inhaler*] 2 puff INH Q4H PRN #1 mdi PRN Reason: Shortness Of Breath predniSONE TAB* [Deltasone 20 MG TAB*] 40 mg PO DAILY #10 tab Patient Education Materials: Asthma (ED) Referrals: Sharon Mesa MD [Medical Doctor] - Elvis Lizama MD [Primary Care Provider] - 1 Week Additional Instructions: NO INDICATION OF BACTERIAL INFECTION TODAY. WILL TREAT FOR ASTHMA EXACERBATION WITH PREDNISONE ONCE DAILY FOR 5 DAYS. ALBUTEROL REFILLED TODAY. YOU MAY CALL ME HERE FRIDAY MORNING IF YOU HAVE ANY QUESTIONS OR CONCERNS ABOUT THE COURSE OF YOUR ILLNESS. GIVEN THE FREQUENCY OF YOUR VISITS TO THE URGENT CARE WITH RESPIRATORY SYMPTOMS CONSIDER FOLLOWING UP WITH PULMONOLOGY TO DISCUSS YOUR ASTHMA AND TO EVALUATE FOR ANY POSSIBLE OTHER UNDERLYING CONDITION. SIMILAR TO YOUR PREVIOUS VISITS YOUR BLOOD PRESSURE IS QUITE ELEVATED. KEEP YOUR FOLLOW-UP APPOINTMENT WITH DR. LIZAMA TO DISCUSS MANAGEMENT OF YOUR BLOOD PRESSURE. GO TO THE ER WITHOUT FAIL IF YOU DEVELOP CHEST PAIN, SHORTNESS OF BREATH, NAUSEA, SWEATS, DIZZINESS OR ANY OTHER CONCERNING SYMPTOMS. - Billing Disposition and Condition Condition: STABLE Disposition: Home
== END 2019-09-03 11:34 | disposition home or self-care (01) ==
LOC: UCEAST 10:30
DX: J45.901 Unspecified asthma with (acute) exacerbation (principal); R09.89 Other specified symptoms and signs involving the circulatory and respiratory systems; R05 Cough; Z88.8 Allergy status to other drugs, medicaments and biological substances; Z91.010 Allergy to peanuts; Z91.013 Allergy to seafood; Z91.018 Allergy to other foods
CPT/HCPCS: 99212; G0463

== ENCOUNTER 2019-09-21 01:16 | Emergency (ER) | payer BC, MEDICARE ==
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
[2019-09-21 02:35] VITALS: BP 201/103
== END 2019-09-21 02:33 | disposition home or self-care (01) ==
LOC: ED 01:16
DX: J45.901 Unspecified asthma with (acute) exacerbation (principal); I10 Essential (primary) hypertension; Z91.010 Allergy to peanuts; Z91.013 Allergy to seafood; Z88.8 Allergy status to other drugs, medicaments and biological substances; Z91.09 Other allergy status, other than to drugs and biological substances
CPT/HCPCS: 99282

== ENCOUNTER 2019-09-27 15:17 | Emergency (ER) | payer BC, MEDICARE ==
[2019-09-27] MEDS ORDERED: Lidocaine 2% EPI 1:200000 MPF* 10 ML VIAL INJ ONE (15:30)
--- NOTE | 2019-09-27 15:37 | ED ---
Head Injury - HPI Summary HPI Summary: 69-year-old male presents with laceration to scalp today. States he had a mechanical fall tripping on a box of lettuce and landing on the concrete. He denies loss consciousness. No change in vision. No dizziness or headache. The lacerations are no longer bleeding. He denies any neck pain. No hand pain. No nausea vomiting. Denies any other injury. He is not on any blood thinners. Tetanus was in 2016. Has history of high blood pressure. - History Of Current Complaint Stated Complaint: FALL PER EMS Time Seen by Provider: 09/27/19 15:20 - Allergies/Home Medications Allergies/Adverse Reactions: Allergies Allergy/AdvReac Type Severity Reaction Status Date / Time levocetirizine [From Xyzal] Allergy GI Upset Verified 09/03/19 10:53 peanut Allergy Wheezing Verified 09/03/19 10:53 shellfish derived Allergy Hives Verified 09/03/19 10:53 red wise Allergy flushed Uncoded 09/03/19 10:53 Home Medications: Home Medications Lisinopril TAB* [Prinivil TAB*] 10 mg PO DAILY 09/27/19 [History Confirmed 09/27] PMH/Surg Hx/FS Hx/Imm Hx Endocrine/Hematology History: Denies: Hx Anticoagulant Therapy, Hx Diabetes, Hx Thyroid Disease Cardiovascular History: Reports: Hx Hypertension Respiratory History: Reports: Hx Asthma Denies: Hx Chronic Obstructive Pulmonary Disease (COPD) GI History: Denies: Hx Ulcer History: Reports: Hx Kidney Stones Sensory History: Reports: Hx Contacts or Glasses Denies: Hx Hearing Aid Opthamlomology History: Reports: Hx Contacts or Glasses Infectious Disease History: Denies: Hx Clostridium Difficile, Hx Hepatitis, Hx Human Immunodeficiency Virus (HIV), Hx of Known/Suspected MRSA, Hx Shingles, Hx Tuberculosis, Hx Known/ Suspected VRE, Hx Known/Suspected VRSA, History Other Infectious Disease - Family History Known Family History: Negative: Cardiac Disease, Hypertension, Diabetes - Social History Alcohol Use: None Hx Substance Use: No Substance Use Type: Reports: None Hx Tobacco Use: No Smoking Status (MU): Never Smoked Tobacco Review of Systems Negative: Fever Negative: Chest Pain Negative: Shortness Of Breath Positive: Other - laceration Positive: Headache All Other Systems Reviewed And Are Negative: Yes Physical Exam Triage Information Reviewed: Yes Vital Signs Reviewed: Yes Appearance: Positive: Well-Appearing Skin: Positive: Warm, Dry, Other - 4cm by 1 1/2cm laceration to right side of forehead, 1cm superficial to back scalp Head/Face: Positive: Normal Head/Face Inspection Eyes: Positive: Normal, EOMI, ARISTEO, Conjunctiva Clear ENT: Positive: Normal ENT inspection, Pharynx normal, TMs normal Neck: Positive: Other: - nontender neck, full ROM neck Respiratory/Lung Sounds: Positive: Clear to Auscultation, Breath Sounds Present Cardiovascular: Positive: Normal, RRR Musculoskeletal: Positive: Normal Neurological: Positive: Sensory/Motor Intact, Alert, Oriented to Person Place, Time, CN Intact II-III Psychiatric: Positive: Normal - [place] Coma Scale Best Eye Response: 4 - Spontaneous Best Motor Response: 6 - Obeys Commands Best Verbal Response: 5 - Oriented Coma Scale Total: 15 Procedures - Sedation Patient Received Moderate/Deep Sedation with Procedure: No - Laceration/Wound Repair 1 Location: head Description: Linear Anesthesia: Local, 1.0%, Epi Length, Depth and Shape: 4cm by 1 1/2cm to right scalp Irrigated w/ Saline (ccs): 500 Closure: Single Layer Suture Type: Prolene Number of Sutures: 6 Diagnostics - Laboratory Lab Statement: Any lab studies that have been ordered have been reviewed, and results considered in the medical decision making process. - Radiology knee Radiology Interpretation Completed By: Radiologist Summary of Radiographic Findings: REPORT AND IMPRESSION: #. Negative for joint effusion, fracture, or articular malalignment. #. Mild osteoarthritis with mild medial joint space narrowing and partial flattening of the articular surfaces. # . Anterior soft tissue swelling without subcutaneous emphysema or conspicuous foreign body. #. Peripheral vascular calcifications. _ - CT brain CT Interpretation Completed By: Radiologist Summary of CT Findings: IMPRESSION: NO EVIDENCE FOR ACUTE INTRACRANIAL ABNORMALITY. Re-Evaluation - Re-Evaluation First Eval Re-Evaluation Time: 16:00 Comment: now complaining of left knee pain, swelling of left patella, neurovasuclar intact, full ROM of knee Head Injury Course/Dx Course Of Treatment: 69-year-old male presents with laceration to scalp today. States he had a mechanical fall tripping on a box of lettuce and landing on the concrete. He denies loss consciousness. No change in vision. No dizziness or headache. The lacerations are no longer bleeding. He denies any neck pain. No hand pain. No nausea vomiting. Denies any other injury. He is not on any blood thinners. Tetanus was in 2016. Has history of high blood pressure. On exam has normal neuro exam. Has a 4 cm x 1 1/2cm laceration to the right scalp. Cleaned area and placed 6 sutures. Also has a 1 cm superficial laceration posterior scalp that cleaned and requires no closure. CT of the brain is normal. xray knee just soft tissue swelling. gave head injury precautions. told follow up with primary. patient understand and agrees with plan. - Diagnoses Differential Diagnosis/HQI/PQRI: Concussion Without LOC, Contusion, Intracranial Bleed, Laceration Provider Diagnoses: Scalp laceration, Head injury, Left knee injury Discharge ED - Sign-Out/Discharge Documenting (check all that apply): Patient Departure - Discharge Plan Condition: Good Disposition: HOME Patient Education Materials: Care For Your Stitches (ED), Head Injury (ED) Forms: *Work Release Referrals: Elvis Lizama MD [Primary Care Provider] - Additional Instructions: Place ice on area as needed Keep area clean and dry for 24 hours Take Tylenol for headache every 6 hours Modify activities as tolerated Follow up with primary within 5 days suture removal in 5 days Return to ED if develop any new or worsening symptoms - Billing Disposition and Condition Condition: GOOD Disposition: Home - Attestation Statements Provider Attestation: I was available for consultation for this patient. I did not evaluate the patient or participate in any medical decision making or disposition decisions unless I am specifically named in the chart as having consulted on the patient. If I have consulted on the patient, please see my own ED note on the patient encounter. Nikhil Cheema MD
[2019-09-27] MEDS ORDERED: Lidocaine 2% w/ EPI 1:200,000* 20 ML SDV VIAL INJ ONE (16:00)
[2019-09-27 17:45] VITALS: BP 134/87
== END 2019-09-27 17:35 | disposition home or self-care (01) ==
LOC: ED 15:17
DX: S01.81XA Laceration without foreign body of other part of head, initial encounter (principal); S89.92XA Unspecified injury of left lower leg, initial encounter; W01.198A Fall on same level from slipping, tripping and stumbling with subsequent striking against other object, initial encounter; Y92.9 Unspecified place or not applicable; I10 Essential (primary) hypertension; J45.909 Unspecified asthma, uncomplicated; Z79.899 Other long term (current) drug therapy; Z88.8 Allergy status to other drugs, medicaments and biological substances
CPT/HCPCS: 12002; 70450; 99282

== ENCOUNTER 2021-06-25 07:24 | Inpatient (IN) ==
[2021-06-25] MEDS ORDERED: methylPREDNISolone 125 mg 2 ML VIAL IV ONE (08:18)
[2021-06-25] MEDS ORDERED: NS 0.9% 1000 ml BAG 1,000 ML IV ONE (08:18)
[2021-06-25 08:20] LABS: ABS Eosinophils 0.6 10^3/ul (0-0.6); ABS Lymphocytes 2.2 10^3/ul (1.0-4.8); ABS Monocytes 0.3 10^3/ul (0-0.8); ABS Neutrophils 1.8 10^3/ul (1.5-7.7); Eosinophil % 11.7 %; Hematocrit 44 % (42-52); Hemoglobin 14.8 g/dL (14.0-18.0); Lymphocyte % 45.2 %; Mean Corpuscular HGB Conc 34 g/dL (31-36); Mean Corpuscular Hemoglobin 33 pg (27-31); Mean Corpuscular Volume 96 fL (80-94); Nucleated Red Blood Cells % 0.2; Platelet Count 182 10^3/uL (150-450); Red Blood Count 4.52 10^6 /uL (4.18-5.48); Red Cell Distribution Width 14 % (10-15)
[2021-06-25 08:34] LABS: ALT 14 U/L (7-52); Albumin 3.9 g/dL (3.2-5.2); Albumin/Globulin Ratio 1.4 (1-3); Alkaline Phosphatase 49 U/L (35-149); Blood Urea Nitrogen 22 mg/dL (6-24); CO2 Carbon Dioxide 26 mmol/L (22-32); Calcium 9.4 mg/dL (8.6-10.3); Chloride 104 mmol/L (101-111); Globulin 2.8 g/dL (2-4); Glucose 126 mg/dL (70-100); Sodium 139 mmol/L (135-145); Total Protein 6.7 g/dL (6.4-8.9); Troponin I 0.02 ng/mL (<0.03)
[2021-06-25 08:51] LABS: Anion Gap 9 mmol/L (2-11)
[2021-06-25] MEDS ORDERED: Albuterol HFA INHALER 8 gm MDI INH ONE (09:19)
[2021-06-25 10:46] LABS: AST Redraw 19 U/L (13-39); Magnesium 1.9 mg/dL (1.9-2.7); Potassium Redraw 3.6 mmol/L (3.5-5.0)
[2021-06-25 11:17] LABS: Troponin I 0.06 ng/mL (<0.03)
[2021-06-25 14:31] LABS: Troponin I 0.12 ng/mL (<0.03)
[2021-06-25] MEDS ORDERED: Metoprolol Tartrate 5 mg VIAL 5 ml VIAL (1 mg/ml) IV ONE (16:31)
[2021-06-25] MEDS ORDERED: Heparin 5000 UNITS/ML 1 mL VIAL IV SCH (17:00)
[2021-06-25] MEDS ORDERED: Enoxaparin 40 MG/0.4 ML SYR SUBCUT SCH (17:00)
[2021-06-25] MEDS ORDERED: Iohexol 350 (CONTRAST) 500 ML MDV IV ONE (17:39)
[2021-06-25 17:51] LABS: Urine Appearance Clear; Urine Bilirubin Negative (Negative); Urine Blood Negative (Negative); Urine Color Yellow; Urine Glucose 3+(>=500 mg/dL) (Negative); Urine Ketones 1+ (Negative); Urine Nitrite Negative (Negative); Urine Protein Negative (Negative); Urine Specific Gravity 1.015 (1.002-1.030); Urine Urobilinogen Negative (Negative)
[2021-06-25 18:09] LABS: Rapid COVID-19 Molecular Undetected (Undetected)
[2021-06-25 18:20] LABS: Troponin I 0.17 ng/mL (<0.03)
[2021-06-25] MEDS ORDERED: LORazepam 2 mg VIAL 1 ml ONE (18:52)
[2021-06-25] MEDS: Heparin DRIP 25,000 UNITS BAG 25,000 UNITS/500 ML BAG IV SCH (19:14)
[2021-06-25] MEDS: Mometasone/Formoter 200/5 MDI INH SCH (20:25)
[2021-06-25 22:41] LABS: Troponin I 0.35 ng/mL (<0.03)
[2021-06-26 02:23] LABS: Troponin I 0.67 ng/mL (<0.03)
[2021-06-26 06:30] LABS: ABS Lymphocytes 1.5 10^3/ul (1.0-4.8); ABS Monocytes 0.5 10^3/ul (0-0.8); Eosinophil % 0.1 %; Hematocrit 40 % (42-52); Hemoglobin 13.9 g/dL (14.0-18.0); Mean Corpuscular HGB Conc 35 g/dL (31-36); Mean Corpuscular Hemoglobin 33 pg (27-31); Mean Corpuscular Volume 95 fL (80-94); Platelet Count 160 10^3/uL (150-450); Red Blood Count 4.21 10^6 /uL (4.18-5.48); Red Cell Distribution Width 14 % (10-15)
[2021-06-26 06:45] LABS: Anion Gap 7 mmol/L (2-11); Blood Urea Nitrogen 18 mg/dL (6-24); CO2 Carbon Dioxide 27 mmol/L (22-32); Calcium 9.1 mg/dL (8.6-10.3); Chloride 106 mmol/L (101-111); Cholesterol 213 mg/dL; Glucose 112 mg/dL (70-100); HDL Cholesterol 57.8 mg/dL; LDL Cholesterol 145 mg/dL; Sodium 140 mmol/L (135-145); Triglycerides 49 mg/dL
[2021-06-26 06:59] LABS: Troponin I 0.76 ng/mL (<0.03)
[2021-06-26] MEDS: Mometasone/Formoter 200/5 MDI INH SCH ×3 (07:30→19:08)
[2021-06-26] MEDS ORDERED: Aspirin EC 81 mg TAB.EC (enteric coated) PO SCH (09:00)
[2021-06-26] MEDS: Aspirin EC 81 mg TAB.EC (enteric coated) PO SCH (09:01)
[2021-06-26] MEDS: Albuterol HFA INHALER 8 gm MDI INH PRN (09:13)
[2021-06-26 09:37] LABS: Troponin I 0.84 ng/mL (<0.03)
[2021-06-26] MEDS ORDERED: Perflutren Lipid Microsphere 3 ML VIAL ONE (09:37)
[2021-06-26 14:26] LABS: Troponin I 0.78 ng/mL (<0.03)
[2021-06-26 16:59] LABS: Troponin I 0.74 ng/mL (<0.03)
[2021-06-27] MEDS: Albuterol HFA INHALER 8 gm MDI INH PRN ×2 (02:07→08:51)
[2021-06-27] MEDS: Heparin DRIP 25,000 UNITS BAG 25,000 UNITS/500 ML BAG IV SCH (04:47)
[2021-06-27 08:45] LABS: ABS Eosinophils 0.3 10^3/ul (0-0.6); ABS Lymphocytes 2.4 10^3/ul (1.0-4.8); ABS Monocytes 0.3 10^3/ul (0-0.8); Eosinophil % 4.3 %; Hematocrit 44 % (42-52); Hemoglobin 14.9 g/dL (14.0-18.0); Lymphocyte % 39.6 %; Mean Corpuscular HGB Conc 34 g/dL (31-36); Mean Corpuscular Hemoglobin 33 pg (27-31); Mean Corpuscular Volume 96 fL (80-94); Mean Platelet Volume 9.4 fL (7.4-10.4); Platelet Count 159 10^3/uL (150-450); Red Blood Count 4.58 10^6 /uL (4.18-5.48); Red Cell Distribution Width 14 % (10-15); White Blood Count 6.1 10^3/uL (3.5-10.8)
[2021-06-27] MEDS: Mometasone/Formoter 200/5 MDI INH SCH ×2 (08:49→19:52)
[2021-06-27 09:03] LABS: Calcium 9.2 mg/dL (8.6-10.3); Potassium 3.6 mmol/L (3.5-5.0)
[2021-06-27] MEDS: Aspirin EC 81 mg TAB.EC (enteric coated) PO SCH (09:07)
[2021-06-27] MEDS ORDERED: Metoprolol Tartrate 5 mg VIAL 5 ml VIAL (1 mg/ml) ONE (14:10)
[2021-06-28] MEDS: NS 0.9% 1000 ml BAG 1,000 ML IV SCH ×2 (03:27→11:52)
[2021-06-28] MEDS: Aspirin EC 81 mg TAB.EC (enteric coated) PO SCH (07:42)
[2021-06-28] MEDS: Mometasone/Formoter 200/5 MDI INH SCH (07:45)
[2021-06-28] MEDS ORDERED: Midazolam 5 mg/5 ml VIAL 1 mg/ml 5 ml VIAL (5 mg) ONE (08:37)
[2021-06-28] MEDS ORDERED: Heparin 1,000 UNIT/ML 10 ml (10,000 UNITS) CATHLAB/DIALYSIS ONE (08:37)
[2021-06-28] MEDS ORDERED: VERAPAMIL 2.5 MG/ML 2 ML VIAL ** 5 mg/2 ml ONE (08:37)
[2021-06-28] MEDS ORDERED: fentaNYL 100 mcg/2 ml 50 MCG/ML VIAL ONE (08:37)
[2021-06-28] MEDS ORDERED: Heparin 2 UNITS/ML 1000 mls 2,000 ML IV ONE (08:38)
[2021-06-28] MEDS ORDERED: Lidocaine 1% VIAL 10 MG/ML VIAL ONE (08:38)
[2021-06-28] MEDS ORDERED: Iohexol 350 (CONTRAST) 200 ML MDV IV ONE ×2 (08:38→09:38)
[2021-06-28] MEDS ORDERED: nitroGLYCERIN DRIP 25,000 MCG/250 ML BTL ONE (08:38)
[2021-06-28 12:54] VITALS: BP 149/64
[2021-06-28 13:59] LABS: ABS Eosinophils 0.1 10^3/ul (0-0.6); ABS Lymphocytes 1.4 10^3/ul (1.0-4.8); ABS Monocytes 0.2 10^3/ul (0-0.8); ABS Neutrophils 2.4 10^3/ul (1.5-7.7); Eosinophil % 2.9 %; Hematocrit 44 % (42-52); Hemoglobin 14.7 g/dL (14.0-18.0); Mean Corpuscular HGB Conc 34 g/dL (31-36); Mean Corpuscular Hemoglobin 32 pg (27-31); Mean Corpuscular Volume 96 fL (80-94); Mean Platelet Volume 10.1 fL (7.4-10.4); Nucleated Red Blood Cells % 0.1; Platelet Count 168 10^3/uL (150-450); Red Blood Count 4.55 10^6 /uL (4.18-5.48); Red Cell Distribution Width 14 % (10-15); White Blood Count 4.1 10^3/uL (3.5-10.8)
[2021-06-28 14:22] LABS: Calcium 8.9 mg/dL (8.6-10.3); Potassium 3.7 mmol/L (3.5-5.0)
== END 2021-06-28 14:30 | disposition short-term general hospital (02) | DRG 282 ==
LOC: MED 07:24 → ED 07:24 → SUATTDRO 16:05 → MED 17:47 → MEDTELE 06-28 11:58
PROVIDERS: ADMIT Internal Medicine; ATTEND Internal Medicine

== ENCOUNTER 2021-08-20 22:05 | Observation (INO) ==
[2021-08-20] MEDS ORDERED: Albuterol HFA INHALER 8 gm MDI INH ONE (22:50)
[2021-08-20 23:27] LABS: ABS Eosinophils 0.8 10^3/ul (0-0.6); ABS Lymphocytes 1.4 10^3/ul (1.0-4.8); ABS Monocytes 0.5 10^3/ul (0-0.8); ABS Neutrophils 5.8 10^3/ul (1.5-7.7); Hematocrit 35 % (42-52); Hemoglobin 11.5 g/dL (14.0-18.0); Lymphocyte % 16.5 %; Mean Corpuscular HGB Conc 33 g/dL (31-36); Mean Corpuscular Hemoglobin 30 pg (27-31); Mean Corpuscular Volume 92 fL (80-94); Mean Platelet Volume 9.6 fL (7.4-10.4); Platelet Count 261 10^3/uL (150-450); Red Blood Count 3.82 10^6 /uL (4.18-5.48); Red Cell Distribution Width 16 % (10-15); White Blood Count 8.5 10^3/uL (3.5-10.8)
[2021-08-20 23:43] LABS: ALT 16 U/L (7-52); AST 21 U/L (13-39); Albumin 4.1 g/dL (3.2-5.2); Albumin/Globulin Ratio 1.6 (1-3); Alkaline Phosphatase 88 U/L (35-149); Anion Gap 9 mmol/L (2-11); Blood Urea Nitrogen 27 mg/dL (6-24); CO2 Carbon Dioxide 22 mmol/L (22-32); Calcium 9.2 mg/dL (8.6-10.3); Chloride 106 mmol/L (101-111); Globulin 2.6 g/dL (2-4); Glucose 106 mg/dL (70-100); Potassium 4.3 mmol/L (3.5-5.0); Sodium 137 mmol/L (135-145); Total Protein 6.7 g/dL (6.4-8.9); eGFR CKD-EPI 88.9 (>60)
[2021-08-20 23:50] LABS: Troponin I 0.06 ng/mL (<0.03)
[2021-08-21 01:19] LABS: Rapid COVID-19 Molecular Undetected (Undetected)
[2021-08-21] MEDS ORDERED: Albuterol 2.5mg/3 ml (0.083%) NEB.SOLN INH PRN (01:41)
[2021-08-21] MEDS ORDERED: Albuterol HFA INHALER 8 gm MDI INH PRN (01:41)
[2021-08-21 02:47] LABS: Troponin I 0.06 ng/mL (<0.03)
[2021-08-21 02:53] LABS: C Reactive Protein 1.23 mg/L (<8.01)
[2021-08-21] MEDS ORDERED: Enoxaparin 40 MG/0.4 ML SYR SUBCUT SCH (06:00)
[2021-08-21] MEDS ORDERED: Mometasone/Formoter 200/5 MDI INH SCH (07:00)
[2021-08-21] MEDS ORDERED: Aspirin EC 81 mg TAB.EC (enteric coated) PO SCH (09:00)
[2021-08-21 13:20] VITALS: BP 118/69
[2021-08-21 20:37] LABS: Ferritin 19.2 ng/mL (24-336)
[2021-08-23 15:17] LABS: % Iron Saturation 10 % (14 - 50); Total Iron Binding Capacity 392 mcg/dL (250 - 400)
[2021-08-24 08:33] LABS: Iron 40
== END 2021-08-21 13:21 ==
LOC: ED 22:05 → EDHOLD 08-21 01:37 → INTOOBSV 08-21 01:37 → EDHOLD 08-21 13:20
PROVIDERS: ADMIT Hospitalist; ATTEND Hospitalist

== ENCOUNTER 2023-03-03 22:49 | Observation (INO) ==
[2023-03-03] MEDS ORDERED: Albuterol (2.5 MG) 0.5 % CONC 0.5 ML NEB.SOLN INH ONE ×2 (23:00→23:02)
[2023-03-03] MEDS ORDERED: Magnesium Sulf 4 GM/100 ML IV 4,000 MG/100 ML BAG IVPB ONE (23:00)
[2023-03-03] MEDS ORDERED: Albuterol 2.5mg/3 ml (0.083%) NEB.SOLN INH ONE (23:03)
[2023-03-03] MEDS ORDERED: diazePAM INJ CARPUJECT 5 MG/ML SYRINGE IV ONE (23:08)
[2023-03-03 23:17] LABS: Venous Bicarbonate HCO3 26.5 mmol/L (24-28)
[2023-03-03 23:18] LABS: ABS Basophils 0.1 10^3/uL (0.0-0.1); ABS Eosinophils 1.3 10^3/uL (0.0-0.5); ABS Lymphocytes 2.9 10^3/uL (1.0-4.8); ABS Monocytes 0.6 10^3/uL (0.0-1.1); ABS Neutrophils 3.2 10^3/uL (1.5-7.6); ABS Nucleated RBC 0.02 10^3/ul; Eosinophil % 15.6 %; Hematocrit 41.6 % (38-53); Lymphocyte % 36.2 %; Mean Corpuscular Hemoglobin 30.1 pg (27-33); Mean Corpuscular Hgb Conc 33.5 g/dL (31-36); Mean Corpuscular Volume 89.8 fL (80-97); Mean Platelet Volume 9.1 fL (7.5-11.2); Nucleated Red Blood Cells % 0.3 /100 WBC (0.0-0.4); Platelet Count 253 10^3/uL (150-450); Red Blood Count 4.64 10^6/uL (4.06-5.63); Red Cell Distribution Width 15.5 % (12-17)
[2023-03-03 23:35] LABS: Albumin 4.4 g/dL (3.2-5.2); Albumin/Globulin Ratio 1.6 (1-3); Calcium 9.3 mg/dL (8.6-10.3); Creatinine, Serum 0.92 mg/dL (0.67-1.17); Globulin 2.8 g/dL (2-4); Potassium 4.1 mmol/L (3.5-5.0); Total Bilirubin 0.5 mg/dL (0.2-1.0); Total Protein 7.2 g/dL (6.4-8.9); eGFR CKD-EPI 89.5 (>60)
[2023-03-04 00:47] LABS: High Sensitivity Troponin 1 Hr 50 pg/mL (<20)
[2023-03-04] MEDS ORDERED: Albuterol/Ipratropium NEB.SOL (2.5/0.5 MG) 3 ML NEB.SOLN INH PRN (02:39)
[2023-03-04] MEDS: Albuterol/Ipratropium NEB.SOL (2.5/0.5 MG) 3 ML NEB.SOLN INH SCH ×5 (03:06→19:38)
[2023-03-04] MEDS: methylPREDNISolone SOD SUCC 40 mg/ml 1 ml VIAL IV SCH ×2 (03:08→11:59)
[2023-03-04 03:39] LABS: High Sensitivity Troponin 3 Hr 191 pg/mL (<20)
[2023-03-04] MEDS: CMCS: FLUTICAS/UMECLI/VILANT 100-62.5-25 MDI (NF) INH SCH (07:22)
[2023-03-04] MEDS: Aspirin EC 81 mg TAB.EC (enteric coated) PO SCH (09:28)
[2023-03-04] MEDS ORDERED: DOXYCYCLINE 100 MG IVPB ONE (10:30)
[2023-03-04] MEDS ORDERED: [UNRECOGNIZED DRUG - OTHER] IVPB ONE (10:30)
[2023-03-04] MEDS: cefTRIAXone 1 gm/50 mL D5W 1 GM/50 ML BAG IV SCH (11:59)
[2023-03-04] MEDS ORDERED: Enoxaparin 40 MG/0.4 ML SYR SUBCUT SCH (21:00)
[2023-03-05] MEDS ORDERED: DOXYcycline 100 MG in NS 0.9% 250 ml 250 ML IVPB SCH
[2023-03-05] MEDS: Albuterol/Ipratropium NEB.SOL (2.5/0.5 MG) 3 ML NEB.SOLN INH SCH ×2 (00:05→07:40)
[2023-03-05] MEDS: CMCS: FLUTICAS/UMECLI/VILANT 100-62.5-25 MDI (NF) INH SCH (07:52)
[2023-03-05] MEDS: Aspirin EC 81 mg TAB.EC (enteric coated) PO SCH (08:31)
[2023-03-05 10:21] VITALS: BP 105/64
[2023-03-05] MEDS: cefTRIAXone 1 gm/50 mL D5W 1 GM/50 ML BAG IV SCH (10:38)
== END 2023-03-05 12:45 | disposition home or self-care (01) ==
LOC: ED 22:49 → EDHOLD 22:49 → SUATTDRO 03-04 02:35 → EDHOLD 03-04 13:38 → MED 03-04 15:08
PROVIDERS: ADMIT Hospitalist; ATTEND Internal Medicine

== ENCOUNTER 2023-04-12 22:12 | Inpatient (IN) ==
[2023-04-12] MEDS ORDERED: methylPREDNISolone SOD SUCC 125 mg 2 ML VIAL IV ONE (22:24)
[2023-04-12 22:45] LABS: ABS Lymphocytes 1.6 10^3/uL (1.0-4.8); ABS Monocytes 0.6 10^3/uL (0.0-1.1); ABS Neutrophils 4.2 10^3/uL (1.5-7.6); Eosinophil % 13.1 %; Hematocrit 39.5 % (38-53); Hemoglobin 13.4 g/dL (13.2-16.3); Lymphocyte % 21.5 %; Mean Corpuscular Hemoglobin 30.2 pg (27-33); Mean Corpuscular Volume 88.8 fL (80-97); Platelet Count 230 10^3/uL (150-450); Red Blood Count 4.45 10^6/uL (4.06-5.63); Red Cell Distribution Width 16.5 % (12-17); White Blood Count 7.4 10^3/uL (3.6-10.2)
[2023-04-12] MEDS: Albuterol/Ipratropium NEB.SOL (2.5/0.5 MG) 3 ML NEB.SOLN INH SCH (22:49)
[2023-04-12 22:53] LABS: PCO2 Arterial 52 mmHg (35-45); PO2 Arterial 88 mmHg (80-100)
[2023-04-12 22:53] LABS: INR 1.09 (0.88-1.18)
[2023-04-12 23:01] LABS: Albumin 4.3 g/dL (3.2-5.2); Albumin/Globulin Ratio 1.7 (1-3); Calcium 9.3 mg/dL (8.6-10.3); Creatinine, Serum 0.92 mg/dL (0.67-1.17); Globulin 2.5 g/dL (2-4); Total Bilirubin 0.5 mg/dL (0.2-1.0); Total Protein 6.8 g/dL (6.4-8.9); eGFR CKD-EPI 89.5 (>60)
[2023-04-12 23:07] LABS: Potassium 3.9 mmol/L (3.5-5.0)
[2023-04-13] MEDS ORDERED: Albuterol HFA INHALER 8 gm MDI INH ONE (00:14)
[2023-04-13] MEDS ORDERED: Albuterol/Ipratropium NEB.SOL (2.5/0.5 MG) 3 ML NEB.SOLN INH PRN ×2 (03:35→05:10)
[2023-04-13] MEDS ORDERED: Albuterol/Ipratropium NEB.SOL (2.5/0.5 MG) 3 ML NEB.SOLN INH SCH (06:00)
[2023-04-13] MEDS ORDERED: Albuterol HFA INHALER 8 gm MDI INH SCH (06:00)
[2023-04-13] MEDS: FLUTICAS/UMECLI/VILANT 100-62.5-25 MDI (NF) INH SCH (07:48)
[2023-04-13] MEDS: Albuterol/Ipratropium NEB.SOL (2.5/0.5 MG) 3 ML NEB.SOLN INH SCH ×4 (07:48→19:30)
[2023-04-13] MEDS: Aspirin EC 81 mg TAB.EC (enteric coated) PO SCH (10:11)
[2023-04-13] MEDS: Heparin 5000 UNITS/ML 1 mL VIAL SUBCUT SCH ×2 (10:11→20:08)
[2023-04-14 05:56] LABS: ABS Lymphocytes 1.1 10^3/uL (1.0-4.8); ABS Monocytes 0.6 10^3/uL (0.0-1.1); ABS Neutrophils 5.4 10^3/uL (1.5-7.6); Hematocrit 37.6 % (38-53); Hemoglobin 12.7 g/dL (13.2-16.3); Lymphocyte % 15.8 %; Mean Corpuscular Hemoglobin 30.2 pg (27-33); Mean Corpuscular Hgb Conc 33.8 g/dL (31-36); Mean Corpuscular Volume 89.2 fL (80-97); Mean Platelet Volume 8.5 fL (7.5-11.2); Nucleated Red Blood Cells % 0.1 /100 WBC (0.0-0.4); Platelet Count 236 10^3/uL (150-450); Red Blood Count 4.22 10^6/uL (4.06-5.63); Red Cell Distribution Width 16.9 % (12-17); White Blood Count 7.2 10^3/uL (3.6-10.2)
[2023-04-14 06:11] LABS: Calcium 9.6 mg/dL (8.6-10.3); Creatinine, Serum 0.75 mg/dL (0.67-1.17); Potassium 4.1 mmol/L (3.5-5.0); eGFR CKD-EPI 97.1 (>60)
[2023-04-14] MEDS: FLUTICAS/UMECLI/VILANT 100-62.5-25 MDI (NF) INH SCH (07:51)
[2023-04-14] MEDS: Albuterol/Ipratropium NEB.SOL (2.5/0.5 MG) 3 ML NEB.SOLN INH SCH ×2 (07:51→20:17)
[2023-04-14] MEDS: Aspirin EC 81 mg TAB.EC (enteric coated) PO SCH (08:08)
[2023-04-14] MEDS: Heparin 5000 UNITS/ML 1 mL VIAL SUBCUT SCH ×2 (08:10→20:05)
[2023-04-14] MEDS ORDERED: Albuterol/Ipratropium NEB.SOL (2.5/0.5 MG) 3 ML NEB.SOLN INH PRN (19:16)
[2023-04-15 06:50] LABS: ABS Eosinophils 0.1 10^3/uL (0.0-0.5); ABS Lymphocytes 2.6 10^3/uL (1.0-4.8); ABS Monocytes 0.5 10^3/uL (0.0-1.1); ABS Neutrophils 3.7 10^3/uL (1.5-7.6); Eosinophil % 2.1 %; Hematocrit 37.8 % (38-53); Hemoglobin 12.8 g/dL (13.2-16.3); Mean Corpuscular Hgb Conc 33.8 g/dL (31-36); Mean Corpuscular Volume 88.8 fL (80-97); Mean Platelet Volume 9.4 fL (7.5-11.2); Platelet Count 205 10^3/uL (150-450); Red Blood Count 4.26 10^6/uL (4.06-5.63); Red Cell Distribution Width 16.6 % (12-17)
[2023-04-15 07:06] LABS: Calcium 9.1 mg/dL (8.6-10.3); Creatinine, Serum 0.8 mg/dL (0.67-1.17); Magnesium 1.9 mg/dL (1.9-2.7); Phosphorus 3.1 mg/dL (2.5-5.0); Potassium 3.8 mmol/L (3.5-5.0); eGFR CKD-EPI 95.2 (>60)
[2023-04-15] MEDS: FLUTICAS/UMECLI/VILANT 100-62.5-25 MDI (NF) INH SCH (08:26)
[2023-04-15] MEDS: Aspirin EC 81 mg TAB.EC (enteric coated) PO SCH (09:55)
[2023-04-15] MEDS: Heparin 5000 UNITS/ML 1 mL VIAL SUBCUT SCH ×2 (09:56→21:28)
[2023-04-15] MEDS: Albuterol/Ipratropium NEB.SOL (2.5/0.5 MG) 3 ML NEB.SOLN INH SCH ×3 (13:18→19:16)
[2023-04-16 06:30] LABS: ABS Lymphocytes 2.6 10^3/uL (1.0-4.8); ABS Monocytes 0.5 10^3/uL (0.0-1.1); ABS Neutrophils 3.5 10^3/uL (1.5-7.6); ABS Nucleated RBC 0.01 10^3/ul; Eosinophil % 0.6 %; Hematocrit 38.6 % (38-53); Hemoglobin 13.1 g/dL (13.2-16.3); Lymphocyte % 38.8 %; Mean Corpuscular Hemoglobin 30.2 pg (27-33); Mean Corpuscular Hgb Conc 33.9 g/dL (31-36); Mean Platelet Volume 9.1 fL (7.5-11.2); Nucleated Red Blood Cells % 0.2 /100 WBC (0.0-0.4); Platelet Count 219 10^3/uL (150-450); Red Blood Count 4.33 10^6/uL (4.06-5.63); Red Cell Distribution Width 16.5 % (12-17); White Blood Count 6.7 10^3/uL (3.6-10.2)
[2023-04-16 06:37] LABS: Calcium 8.7 mg/dL (8.6-10.3); Potassium 3.7 mmol/L (3.5-5.0)
[2023-04-16 06:43] LABS: Creatinine, Serum 0.84 mg/dL (0.67-1.17); Phosphorus 4.2 mg/dL (2.5-5.0); eGFR CKD-EPI 93.8 (>60)
[2023-04-16] MEDS: Albuterol/Ipratropium NEB.SOL (2.5/0.5 MG) 3 ML NEB.SOLN INH SCH ×2 (08:28→13:17)
[2023-04-16] MEDS: FLUTICAS/UMECLI/VILANT 100-62.5-25 MDI (NF) INH SCH (08:28)
[2023-04-16] MEDS: Heparin 5000 UNITS/ML 1 mL VIAL SUBCUT SCH (09:32)
[2023-04-16] MEDS: Aspirin EC 81 mg TAB.EC (enteric coated) PO SCH (09:32)
[2023-04-16 13:48] VITALS: BP 118/69
== END 2023-04-16 15:05 | disposition home or self-care (01) | DRG 202 ==
LOC: ED 22:12 → SUATTDRO 04-13 01:28 → EDHOLD 04-13 01:28 → MED 04-13 02:28
PROVIDERS: ADMIT Internal Medicine; ATTEND Internal Medicine

== ENCOUNTER 2024-01-31 01:04 | Observation (INO) ==
[2024-01-31] MEDS: methylPREDNISolone SOD SUCC 125 mg 2 ML VIAL IV ONE (01:33)
[2024-01-31] MEDS: Albuterol/Ipratropium NEB.SOL (2.5/0.5 MG) 3 ML NEB.SOLN INH PRN (01:33)
[2024-01-31 01:47] LABS: ABS Eosinophils 0.8 10^3/uL (0.0-0.5); ABS Lymphocytes 1.9 10^3/uL (1.0-4.8); ABS Monocytes 0.4 10^3/uL (0.0-1.1); ABS Neutrophils 1.9 10^3/uL (1.5-7.6); ABS Nucleated RBC 0.01 10^3/ul; Eosinophil % 15.4 %; Hematocrit 43.4 % (38-53); Hemoglobin 14.9 g/dL (13.2-16.3); Lymphocyte % 37.8 %; Mean Corpuscular Hemoglobin 32.3 pg (27-33); Mean Corpuscular Hgb Conc 34.3 g/dL (31-36); Mean Corpuscular Volume 94.3 fL (80-97); Mean Platelet Volume 9.2 fL (7.5-11.2); Nucleated Red Blood Cells % 0.2 %/100WBC (0.0-0.8); Platelet Count 183 10^3/uL (150-450); Red Blood Count 4.61 10^6/uL (4.06-5.63); Red Cell Distribution Width 14.3 % (12-17); White Blood Count 5.1 10^3/uL (3.6-10.2)
[2024-01-31 02:17] LABS: Albumin 4.5 g/dL (3.2-5.2); Albumin/Globulin Ratio 2.3 (1-3); C Reactive Protein 1.47 mg/L (<8.01); Calcium 9.7 mg/dL (8.6-10.3); Creatinine, Serum 0.9 mg/dL (0.67-1.17); Potassium 3.8 mmol/L (3.5-5.0); Total Bilirubin 0.9 mg/dL (0.2-1.0); Total Protein 6.5 g/dL (6.4-8.9); eGFR CKD-EPI 91.3 (>60)
[2024-01-31] MEDS ORDERED: Albuterol HFA INHALER 8 gm MDI INH PRN (04:32)
[2024-01-31] MEDS ORDERED: Polyethylene Glycol 3350 BTL 238 GM BTL PO PRN (04:32)
[2024-01-31] MEDS ORDERED: Polyethylene Glycol 3350 17 GM PACKET PO PRN (04:37)
[2024-01-31] MEDS: FLUTICAS/UMECLI/VILANT 100-62.5-25 MDI (NF) INH SCH (07:47)
[2024-01-31] MEDS ORDERED: Albuterol/Ipratropium NEB.SOL (2.5/0.5 MG) 3 ML NEB.SOLN INH PRN (07:47)
[2024-01-31] MEDS: Albuterol/Ipratropium NEB.SOL (2.5/0.5 MG) 3 ML NEB.SOLN INH SCH (07:47)
[2024-01-31] MEDS: Cholecalciferol (VIT D3) 1,000 unit TAB PO SCH (09:33)
[2024-01-31] MEDS: Enoxaparin 40 MG/0.4 ML SYR SUBCUT SCH (09:36)
[2024-01-31] MEDS: Aspirin EC 81 mg TAB.EC (enteric coated) PO SCH (09:36)
[2024-01-31 10:53] VITALS: BP 124/73
== END 2024-01-31 11:30 | disposition home or self-care (01) ==
LOC: ED 01:04 → EDHOLD 01:04 → SUATTDRO 04:18 → MED 04:52
PROVIDERS: ADMIT Hospitalist; ATTEND Student in an Organized Health Care Education/Training Program